=== PATIENT | female | born 1945 | race Caucasian/White ===

== ENCOUNTER 2018-04-05 14:24 | Inpatient (IN) | END 2018-04-14 18:00 | DRG 872 ==

== ENCOUNTER 2018-04-14 18:36 | Inpatient (IN) | END 2018-04-29 13:00 | disposition home health service (06) | DRG 92 ==

== ENCOUNTER 2018-10-20 15:24 | Inpatient (IN) | END 2018-10-28 10:40 | DRG 57 ==

== ENCOUNTER 2018-11-05 15:33 | Inpatient (IN) | payer MEDICARE, OTHER ==
[~2018-11-05] VITALS: Ht 167.6 cm; Wt 79.5 kg
[~2018-11-05 15:33] MED LIST: FELO10TA PO; LETR2.5T PO; LEVO75TA65 PO; LORA1TAB PO; METO-407 PO
[2018-11-05] MEDS ORDERED: CEFTRIAXONE 1 GM/50 ML (PMX) 50 ML IVPB STA (16:20)
[2018-11-05] MEDS ORDERED: SODIUM CHLORIDE 0.9% 1L BAG IV* STA (16:20)
[2018-11-05] MEDS ORDERED: NOVO3I SC (16:52)
[2018-11-05] MEDS ORDERED: ACET325T33 PO (16:53)
[2018-11-05] MEDS ORDERED: ASPI-817 PO (16:54)
[2018-11-05] MEDS ORDERED: AMLO-147 PO (16:54)
[2018-11-05] MEDS ORDERED: ATOR40TA68 PO (16:55)
[2018-11-05] MEDS ORDERED: BENZ2TAB7 PO (16:55)
[2018-11-05] MEDS ORDERED: CYAN100080 PO (16:56)
[2018-11-05] MEDS ORDERED: DOCU-144 PO (16:56)
[2018-11-05] MEDS ORDERED: ENOX40DI14 SC (16:57)
[2018-11-05] MEDS ORDERED: GLUC1VIA6 IJ (16:59)
[2018-11-05] MEDS ORDERED: INSU100I27 SQ (17:00)
[2018-11-05] MEDS ORDERED: LEVO75TA5 PO (17:00)
[2018-11-05] MEDS ORDERED: SENN-120 PO (17:01)
[2018-11-05] MEDS ORDERED: LORA1TAB PO (17:01)
[2018-11-05] MEDS ORDERED: VENL75TA2 PO (17:02)
[2018-11-05] MEDS ORDERED: MAGN400O19 PO (17:02)
--- NOTE | 2018-11-05 18:21 | ERD ---
ER Documentation Chief Complaint Chief Complaint PT FROM [place] WITH C/O VAG BLEEDING X1 DAY, ELEVATED WBC HPI History is unobtainable from patient secondary to her previous CVA. This is a 73-year-old female with previous CVA, history of breast cancer with mastectomy, history of non-Hodgkin's lymphoma hypertension, hemiplegia, and venkata-paresis who presents to the emergency room today for evaluation of vaginal bleeding. I am unable to obtain further history from this patient given her clinical condition. ROS All systems reviewed and are negative except as per history of present illness. Medications Home Meds Reported Medications Magnesium Hydroxide* (Milk Of Magnesia*) 400 Mg/5 Ml Oral.susp, 30 ML PO DAILY, ML 11/05/18 Venlafaxine Hcl* (Effexor XR*) 75 Mg Tab.er.24, 75 MG PO BID, TAB.SA 11/05/18 Sennosides* (Senna Lax*) 8.6 Mg Tablet, 1 TAB PO QHS, TAB 11/05/18 Lorazepam* (Lorazepam*) 1 Mg Tablet, 1 MG PO Q8 PRN for ANXIETY, #60 TAB 11/05/18 Levothyroxine Sodium* (Levothyroxine Sodium*) 75 Mcg Tablet, 75 MCG PO BEFORE BREAKFAST, #30 TAB 11/05/18 Insulin Detemir (Levemir Flextouch) 100 Unit/1 Ml Insuln.pen, 10 UNIT SQ QAM, EA 11/05/18 Glucagon HCl (Glucagon HCl) 1 Mg Vial, 1 MG IJ NEEDED PRN for FOR FSBS<60, VIAL 11/05/18 Enoxaparin Sodium* (Lovenox*) 40 Mg/0.4 Ml Syringe, 40 MG SC DAILY, SYR 11/05/18 Docusate Sodium* (Colace*) 100 Mg Capsule, 100 MG PO BID, #60 CAP 11/05/18 Cyanocobalamin* (Vitamin B-12*) 1,000 Mcg Tablet.sa, 1000 MCG PO DAILY, TAB 11/05/18 Benztropine Mesylate* (Benztropine Mesylate*) 2 Mg Tablet, 2 MG PO BID, TAB 11/05/18 Atorvastatin* (Atorvastatin*) 40 Mg Tablet, 40 MG PO QHS, #30 TAB 11/05/18 Aspirin* (Aspirin* EC) 81 Mg Tablet.dr, 81 MG PO DAILY, TAB 11/05/18 Amlodipine Besylate* (Amlodipine Besylate*) 10 Mg Tablet, 10 MG PO DAILY, #30 TAB HOLD IF SBP<110 11/05/18 Acetaminophen* (Tylenol*) 325 Mg Tablet, 650 MG PO Q4H PRN for PAIN 1-04/02, TAB 11/05/18 Insulin Aspart* (Novolog Insulin Pen*) 100 Unit/Ml Soln, 0 SC .SLIDING SCALE AC, EA IF FE08-610=3 UNIT, 150-200=2 UNITS,201-250=4 UNITS,251-300=6 UNITS,301-350=8 UNITS,351-400=10 UNITS>400=12 UNITS 11/05/18 Discontinued Reported Medications Metoprolol Tartrate* (Lopressor*) 100 Mg Tablet, 100 MG PO BID, #60 TAB 04/05/18 Lorazepam* (Lorazepam*) 1 Mg Tablet, 1 MG PO TID PRN for ANXIETY, #30 TAB 04/05/18 Levothyroxine Sodium* (Levoxyl*) 75 Mcg Tablet, 75 MCG PO BEFORE BREAKFAST, #30 TAB 04/05/18 Letrozole* (Letrozole*) 2.5 Mg Tablet, 2.5 MG PO DAILY, TAB 04/05/18 Felodipine* (Felodipine*) 10 Mg Tab.sr.24h, 10 MG PO DAILY, TAB.SA 04/05/18 Allergies Allergies: Coded Allergies: Penicillins (Verified Allergy, Unknown, 04/05/18) Sulfa (Sulfonamide Antibiotics) (Verified Allergy, Unknown, 04/05/18) codeine (Verified Allergy, Unknown, 04/05/18) hydromorphone (Verified Allergy, Unknown, 04/05/18) PMhx/Soc History of Surgery: Yes (BILATERAL MASTECTOMY, SPLENECTOMY ) Anesthesia Reaction: No Hx Neurological Disorder: Yes (CVA) Hx Respiratory Disorders: No Hx Cardiac Disorders: Yes (HTN) Hx Psychiatric Problems: No Hx Miscellaneous Medical Probl: Yes (DM II, HYPOTHYROID. NON HODGKINS LYMPHOMA) Smoking Status: Unknown if ever smoked Physical Exam Vitals Vital Signs Date Temp Pulse Resp B/P (MAP) Pulse Ox O2 O2 Flow FiO2 Time Delivery Rate 11/05/18 99.0 89 12 94 Room Air 17:27 11/05/18 84 18 150/79 97 Room Air 17:26 (102) 11/05/18 98.0 91 18 199/91 96 15:45 (127) Physical Exam INITIAL VITAL SIGNS: Reviewed by me GENERAL: The patient is a frail-appearing elderly female mild distress HEENT: Dry mucous membranes, pupils equal, round, and reactive to light. EOMI. There is no scleral icterus. NECK: C-spine is soft and supple, there is no meningismus. There is no cervical lymphadenopathy. LUNGS: Mastectomy noted from clear to auscultation bilaterally. There are no rales, wheezes or rhonchi. HEART: Regular rate and rhythm, no murmurs, clicks, rubs or gallops. ABDOMEN: Distended bladder ,soft, non-tender, non-distended. There are bowel sounds in all four quadrants. No rebound or guarding. EXTREMITIES: There is no peripheral cyanosis or edema. No focal swelling or erythema. : No bleeding from the vaginal introitus, small amount of blood noted at the urethra NEUROLOGICAL: Hemiplegia and hemiparesis SKIN: There is no apparent rash or petechiae. HEME/LYMPHATIC: There is no evidence of excessive bruising or lymphedema. PSYCHIATRIC: The patient does not appear anxious or depressed. Result Diagram: 11/05/18 1639 11/05/18 1639 Results 24 hrs Laboratory Tests Test 11/05/18 16:39 11/05/18 16:48 White Blood Count 30.2 10^3/ul Red Blood Count 4.64 10^6/ul Hemoglobin 13.4 g/dl Hematocrit 41.4 % Mean Corpuscular Volume 89.2 fl Mean Corpuscular Hemoglobin 28.9 pg Mean Corpuscular Hemoglobin Concent 32.4 g/dl Red Cell Distribution Width 15.3 % Platelet Count 471 10^3/UL Mean Platelet Volume 11.5 fl Immature Granulocytes % 0.900 % Neutrophils % % Segmented Neutrophils % (Manual) 91 % Band Neutrophils % (Manual) 1 % Lymphocytes % % Lymphocytes % (Manual) 1 % Monocytes % % Monocytes % (Manual) 7 % Eosinophils % % Basophils % % Nucleated Red Blood Cells % 0.0 /100WBC Immature Granulocytes # 0.280 10^3/ul Neutrophils # 10^3/ul Neutrophils # (Manual) 27.6 10^3/ul Band Neutrophils # 0.3 10^3/ul Lymphocytes (Manual) 0.3 10^3/ul Lymphocytes # 10^3/ul Monocytes # 10^3/ul Monocytes # (Manual) 2.1 10^3/ul Eosinophils # 10^3/ul Basophils # 10^3/ul Nucleated Red Blood Cells # 10^3/ul Platelet Estimate INCREASED Sodium Level 146 mmol/L Potassium Level 4.3 mmol/L Chloride Level 109 mmol/L Carbon Dioxide Level 25 mmol/L Anion Gap 12 Blood Urea Nitrogen 43 mg/dl Creatinine 1.27 mg/dl Est Glomerular Filtrat Rate mL/min mL/min Glucose Level 179 mg/dl Calcium Level 10.4 mg/dl Troponin I < 0.012 ng/ml POC Venous Lactate 1.7 mmol/L Current Medications Medications Dose Sig/Rajiv Start Time Status Last (Trade) Ordered Route PRN Stop Time Admin Dose Reason Admin Sodium 2,390 ml BOLUS OVER 2 11/05/18 DC Chloride HOURS STAT 16:20 (NS) IV* 11/05/18 16:21 Ceftriaxone 50 ml @ ONCE STAT 11/05/18 DC Sodium 100 mls/hr IVPB 16:20 11/05/18 16:49 Sodium 1,000 ml @ Q1H STAT 11/05/18 Chloride 1,000 mls/hr IV 18:30 11/05/18 19:29 Procedures/MDM Chest X-ray 1V Interpreted by me: Soft Tissue: No acute a bnormalities Bones: No acute abnormalities Mediastinum/Cardiac Silhouette/Lungs: [No acute abnormalities] EKG: Rate/Rhythm: [Normal Sinus Rhythm] QRS, ST, T-waves: [No changes consistent w/ acute ischemia] Impression: [No evidence of ischemia or arrhythmia] Endovaginal ultrasound: They are bladder does not appear to have been filled for the examination. The submitted transabdominal images do not show the uterus, adnexa, or urinary bladder. No obvious free fluid. Endovaginal images also do not show the uterus or ovaries. This 73-year-old female presents to the emergency room for evaluation of vaginal bleeding. This patient had no bleeding at the vaginal introitus however she did have a suprapubic distention and I did note some blood at the urethral meatus. The patient did have a Morales catheter placed and did have gross hematuria. The Morales catheter was removed and the three-way Morales catheter was placed for irrigation. The patient's lab work does demonstrate a leukocytosis of 30,000. She was started on Rocephin and was given IV fluids in the emergency room. The patient is currently undergoing bladder irrigation and will need to be admitted for continued antibiotics and possible urology consult. I have contacted this patient's primary care physician Dr. Emmanuel and I have reviewed the case with him. He accepts the patient at this time. The patient likely has a leukocytosis secondary to urine infection at this time and [facility] as she is hemodynamically stable and does have a mean arterial pressure greater than 65 with no need for vasopressors at this time. Critical Care: Time: 47 minutes Treatments/Evaluations: Close monitoring and treatment of unstable vital signs, cardiorespiratory, and neurologic status, while maintaining tight balance of fluid, respiratory, and cardiac interventions. Departure Diagnosis: Primary Impression: Sepsis Additional Impressions: Hematuria Cystitis Dehydration Hypertension History of non-Hodgkin's lymphoma H/O splenectomy Condition: JCARLOS Magana DO Nov 05, 2018 18:21
[2018-11-05] MEDS ORDERED: SOD CHLORIDE 0.9% 1,000 ML IV STA ×2 (18:30→21:18)
[2018-11-05] MEDS ORDERED: SOD CHLORIDE 0.9% 1,000 ML IV SCH (18:40)
[2018-11-05] MEDS ORDERED: ACETAMINOPHEN 325 MG TAB PO PRN (19:00)
[2018-11-05] MEDS ORDERED: ONDANSETRON 4 MG INJ IV PRN (19:00)
[2018-11-05] MEDS ORDERED: VANCOMYCIN 1.25 GM in SOD CHLORIDE 0.9% 250 ML IVPB ONE (19:00)
--- NOTE | 2018-11-05 21:30 | NUR ---
Admission notes: Patient admitted from E.R originally coming from residential ([facility]), chief complaint high white count and hematuria. Patient is alert and oriented x2 (name, age), but at times confused. Unable to get medical history from patient. Patient on lazcano catheter with blood drain, emptied 350cc of bloody urine that came from E.R. Noticed that there is no drainage from the lazcano catheter. Called Dr. Emmanuel and got admission orders and also informed Dr. Emmanuel regarding blood drainage from lazcano cath that came from E.R and also informed him about no drainage from lazcano cath as of now. Dr. Emmanuel ordered continuos bladder NS irrigation. Will continue to monitor patient.
[2018-11-05] MEDS: SOD CHLORIDE 0.45% 1,000 ML IV SCH (23:00)
[2018-11-05] MEDS ORDERED: MAGNESIUM HYDROXIDE 30ML CUP PO PRN (23:00)
--- NOTE | 2018-11-05 23:27 | NUR ---
Informed Dr. Emmanuel regarding lactic acid of 2.2. NNO at this time. Will continue to monitor patient.
[2018-11-05 23:48] VITALS: BP 132/63; PULSE 85; RESP 20
[2018-11-06 00:26] VITALS: Ht 167.6 cm; Wt 79.5 kg
[2018-11-06 02:21] VITALS: BP 149/75; PULSE 86; RESP 20
--- NOTE | 2018-11-06 05:58 | NUR ---
EOSS: Patient remains stable. No s/s of SOB noted. Patient still with continous bladder irrigation draining dark red output. Small clots still present from the lazcano catheter. Bed in low postion and locked. Siderails x2 up. Will continue to monitor patient.
[2018-11-06] MEDS: LEVOTHYROXINE 75 MCG TAB PO SCH (06:10)
[2018-11-06 07:48] VITALS: BP 199/101; PULSE 125; RESP 38
[2018-11-06] MEDS: LORAZEPAM 1 MG TAB PO PRN ×2 (07:48→17:26)
[2018-11-06] MEDS: INSULIN ASPART [NOVOLOG] 3 ML PEN SC SCH ×4 (08:00→20:41)
[2018-11-06] MEDS: VENLAFAXINE (XR) 75 MG CAP PO SCH ×2 (08:19→21:03)
[2018-11-06] MEDS: BENZTROPINE 1 MG TAB PO SCH ×2 (08:19→21:03)
[2018-11-06] MEDS: AMLODIPINE 10 MG TAB PO SCH (08:20)
[2018-11-06] MEDS: DOCUSATE SODIUM 100 MG CAP PO SCH ×2 (08:20→20:36)
[2018-11-06] MEDS: INSULIN DETEMIR [LEVEMIR] (100 UNITS/ML) SYG SC SCH (08:21)
[2018-11-06 09:24] VITALS: BP 154/77; PULSE 112
--- NOTE | 2018-11-06 09:24 | NUR ---
am meds and prn for SBP given, doctor notified Addendum: 11/06/18 at 0925 by TATIANA AMADOR RN Amended: Links added.
--- NOTE | 2018-11-06 12:15 | NUR ---
POSITIVE BLOOD CULTURE INFORMED BY LAB, LEFT A MESSAGE WITH THE ANSWERING SERVICE FOR PRIMARY MD
[2018-11-06] MEDS: SOD CHLORIDE 0.45% 1,000 ML IV SCH (12:41)
[2018-11-06 13:38] VITALS: BP 149/71; PULSE 87
[2018-11-06] MEDS ORDERED: VANCOMYCIN IV PER PHARMACY XX SCH (14:00)
--- NOTE | 2018-11-06 14:47 | NUR ---
SS NOTE: ETOH SW REFERRED TO PT REGARDING PROVISION OF ALCOHOL REHAB RESOURCES. SW MET WITH PT AT BEDSIDE, PT IS 55 YR OLD FEMALE ADMITTED FOR ETHANOL WITHDRAWAL. PT APPEARED TO BE A&OX3 AND COPING WITH SOME DIFFICULTY. PT LIVES AT HOME WITH HER DANIEL ([phone]). PT DECLINED TO CONTINUE/PARTICIPATE IN ASSESSMENT DUE TO NOT FEELING WELL AND REQUESTED THAT THIS LEGAL BILLING COORDINATOR LEAVE RESOURCES TO BE PROVIDED. PT HAD BEEN ASSESSED FOR ETOH BY SERGIO YIN ON 10/27/18 (PLEASE REFER TO NOTE) DURING PT'S PREVIOUS ADMISSION FOR ETOH W/DRAWL. SW PROVIDED PT WITH ALCOHOL REHAB/RECOVERY RESOURCES. SW PROVIDED MASSOTHERAPIST CONTACT INFO FOR ANY ADDITIONAL RESOURCES THAT MAY BE NEEDED. SW REMAINS AVAILABLE FOR F/U NEEDED.
--- NOTE | 2018-11-06 16:34 | NUR ---
Vancomycin per Rx 73 year old female 5' 6" 79.55 kg Allergies: Penicillins, sulfa, codeine, dilaudid CC: Gram positive cocci blood culture Other antibiotics: Rocephin WBC 27.9 BUN/Scr 31/0.98 Received Vancomycin 1.25 grams IVPB x1 in ER on 11/05 at 21:20 A/P: Start Vancomycin 1.5 grams IVPB q24h. Pharmacy to follow.
--- NOTE | 2018-11-06 16:51 | HP ---
DATE OF ADMISSION: 11/05/2018 HISTORY OF PRESENT ILLNESS: The patient is a 73-year-old lady status post recent CVA, presenting wit h severe hematuria from the convalescent home and was evaluated in the Emergency Room and was admitte d. The patient is presently lethargic and unable to provide any cogent history at this time. She wa s last hospitalized about 3 weeks ago with right aguirre radiata infarct, severe left-sided weakness, did well with rehabilitation and was transferred to the convalescent home. REVIEW OF SYSTEMS: HEAD: History of stroke, as above. EYES: No blurry vision or glaucoma. The patient wears glasses. ENT: No sinusitis, tonsillitis or hoarseness. CHEST: No bronchitis, hay fever, or asthma. The patient does not smoke. CARDIOVASCULAR: No PND, orthopnea, palpitations. GASTROINTESTINAL: No constipation, diarrhea, change in bowel habits. GENITOURINARY: Dysuria as above. PAST SURGICAL HISTORY: Includes bilateral mastectomy for breast CA, a prior history of Hodgkin disea se, status post splenectomy. Also has had right shoulder surgery and bilateral knee surgeries. PAST MEDICAL HISTORY: Also significant for history of diabetes mellitus type 2, hypertension, hyperl ipidemia, hypothyroidism and history of gastroesophageal reflux disease. ALLERGIES: 1. PENICILLIN. 2. SULFA. 3. DILAUDID. HABITS: Does not smoke or drink. SOCIAL HISTORY: The patient is , has no children. FAMILY HISTORY: Father at age 89 of lung cancer. Mother at age 89 of stroke. The patient lives with her sister. PHYSICAL EXAMINATION: GENERAL: The patient is average-built female who is lethargic. VITAL SIGNS: Temperature 98.0, blood pressure 149/71, O2 saturation 97% on 2 liters nasal cannula. Moderate pallor without cyanosis. Tongue is coated, dry. NECK: Supple. No thyromegaly, bruits or lymphadenopathy. NEUROLOGIC: LUNGS: Clinically clear. HEART: S1, S2 with no definite gallops. ABDOMEN: Soft, obese, nontender. Morales catheter draining bloody urine. EXTREMITIES: No edema. LABORATORY DATA: WBC count 30.2 with hematocrit 41.4. Sodium 148, potassium 3.9, BUN 31, creatinine 0.98. Lactic acid 2.2. Urine shows trace leukocyte esterase. PT/INR 1.05, PTT 27.6. MEDICATIONS: 1. Enoxaparin 40 mg subcu daily. 2. Amlodipine 10 mg daily. 3. Atorvastatin 40 mg daily. 4. Aspirin 81 mg daily. 5. Ditropan 2.2 b.i.d. 6. Lorazepam 1 mg q.8h. p.r.n. 7. Venlafaxine 75 mg p.o. b.i.d. 8. Levothyroxine 75 mcg every day. 9. Levimir insulin 10 units subcu q.a.m. IMPRESSION: 1. Severe hematuria, likely has urinary tract infection. 2. Diabetes mellitus type 2. 3. Status post recent aguirre radiata infarct on the right with left-sided weakness. 4. Hypothyroidism. 5. Breast CA with status post bilateral mastectomy. 6. History of non-Hodgkin lymphoma. 7. History of splenectomy. 8. Hypertension. PLAN: Will hold anticoagulants. Closely monitor for further bleeding. Bladder irrigation. Empiric antibiotic therapy and GI consultation, Dr. Shepard and follow recommendations. Dictated By: SANJUANITA FARRELL MD SR/NTS Conf#: [id number] DID#: [id number] CC: SANJUANITA FARRELL MD;*EndCC*
[2018-11-06] MEDS ORDERED: GLUCOSE GEL 15 GRAM TUBE PO PRN ×2 (17:00)
[2018-11-06] MEDS ORDERED: DEXTROSE 50% 50 ML SYRINGE IV PRN ×2 (17:00)
[2018-11-06] MEDS ORDERED: GLUCAGON 1 MG INJ IM PRN (17:00)
[2018-11-06] MEDS ORDERED: GLUCOSE GEL 15 GRAM TUBE BUCCAL PRN (17:00)
[2018-11-06 17:19] VITALS: BP 173/77; PULSE 97; RESP 20
[2018-11-06] MEDS: CEFTRIAXONE 1 GM/50 ML (PMX) 50 ML IVPB SCH (17:26)
[2018-11-06] MEDS ORDERED: VANCOMYCIN 1.5 GM in SOD CHLORIDE 0.9% 250 ML IVPB SCH (18:00)
--- NOTE | 2018-11-06 18:51 | NUR ---
aox2, on continuous bladder irrigation, low airloss mattress, positive blood cultures, vanco initiated, cleaned before the end of this shift, refused meals
[2018-11-06 19:23] VITALS: BP 152/63; PULSE 92; RESP 16
--- NOTE | 2018-11-06 20:09 | CONS ---
Date/Time of Note Date/Time of Note DATE: 11/06/18 TIME: 19:45 Assessment/Plan Assessment/Plan Chief Complaint/Hosp Course 73-year-old lady status post recent cerebrovascular accident presented with severe hematuria from the convalescent home. She was evaluated in the Emergency Room and admitted for further care. She was last hospitalized about 3 weeks ago with right aguirre radiata infarct, severe left-sided weakness, did well with rehabilitation and was transferred to the convalescent home. The patient is bedridden and states that she is uncomfortable. On the exam the abdomen is very obese and she does have a Morales catheter that is draining well with the continuous bladder irrigation. Pelvic ultrasound was reported as: Nondiagnostic study. The uterus and ovaries were not able to be seen. If symptoms persist, MRI may be helpful. Her hematuria is most likely related to urinary tract infection. For now recommend to continue the IV antibiotic. Also continue the continuous bladder irrigation with normal saline. Consultation Date/Type/Reason Admit Date/Time Nov 05, 2018 at 18:41 Date of Consultation: Nov 06, 2018 Type of Consult Urology Reason for Consultation Gross hematuria Requesting Provider: SANJUANITA FARRELL MD Hx of Present Illness 73-year-old lady status post recent cerebrovascular accident presented with severe hematuria from the convalescent home. She was evaluated in the Emergency Room and admitted for further care. She was last hospitalized about 3 weeks ago with right aguirre radiata infarct, severe left-sided weakness, did well with rehabilitation and was transferred to the convalescent home. The patient is bedridden and states that she is uncomfortable. history of diabetes mellitus type 2, hypertension, hyperlipidemia, hypo thyroidism and history of gastroesophageal reflux disease. Constitutional: other (Weakness) Eyes: no complaints ENT: no complaints Respiratory: No shortness of breath Cardiovascular: no complaints; No chest pain Gastrointestinal: diarrhea Genitourinary: hematuria Musculoskeletal: no complaints Skin: rash (Of her buttocks area) Neurologic: focal-weakness (Left side upper and lower extremities from her recent stroke) Endocrine: no complaints Lymphatic: no complaints Psychological: no complaints Past Medical History Medical History: diabetes, GERD, high cholesterol, hypertension, hypothyroid Past Surgical History Past Surgical Hx: other (Bilateral knee surgery, bilateral mastectomies ,right shoulder surgery, inferior vena cava filter.) Social History Alcohol Use: none Smoking Status: Unknown if ever smoked Exam/Review of Systems Vital Signs Vitals Vital Signs Date Temp Pulse Resp B/P (MAP) Pulse Ox O2 O2 Flow FiO2 Time Delivery Rate 11/06/18 98.2 92 16 152/63 94 19:23 (92) 11/06/18 Nasal 2.0 17:19 Cannula Intake and Output 11/05/18 11/05/18 11/06/18 1515:00 23:00 07:00 IntakeIntake Total 50033 ml 700 ml OutputOutput Total 5900 ml BalanceBalance 86062 ml 700 ml Exam Constitutional: alert Psych: no complaints Head: normocephalic Eyes: nl conjunctiva ENMT: nl external ears & nose Neck: supple, non-tender Respiratory: normal air movement Cardiovascular: No jugular venous distention (JVD) Gastrointestinal: soft, other (Very obese) Genitourinary - Female: other (Pelvic exam showed no mass and no discharge and no vaginal bleeding. She has an indwelling Morales catheter that is draining clear urine); No CVA tenderness Musculoskeletal: other (Paralyzed left side. She cannot move her left upper and her left lower extremities.) Extremities: No calf tenderness Neurological: nl speech Medications Medications Current Medications Insulin Aspart (Novolog Insulin Pen) NOVOLOG *MILD* ALGORITHM WITH MEALS BEDTIME SC ; Start 11/06/18 at 08:00 Sodium Chloride 1,000 ml @ 75 mls/hr [id number] IV Last administered on 11/06/18at 12:41; Admin Dose 75 MLS/HR; Start 11/05/18 at 23:00 Ceftriaxone Sodium 50 ml @ 100 mls/hr Q24H IVPB Last administered on 11/06/18at 17:26; Admin Dose 100 MLS/HR; Start 11/06/18 at 18:00 Clonidine (Catapres) 0.1 mg Q4H PRN PO ELEVATED BLOOD PRESSURE Last administered on 11/06/18at 17:26; Admin Dose 0.1 MG; Start 11/05/18 at 23:00 Acetaminophen (Tylenol Tab) 650 mg Q4H PRN PO PAIN 1-5/10; Start 11/05/18 at 23:00 Amlodipine Besylate (Norvasc) 10 mg DAILY PO Last administered on 11/06/18at 08:20; Admin Dose 10 MG; Start 11/06/18 at 09:00 Atorvastatin Calcium (Lipitor) 40 mg QHS PO ; Start 11/06/18 at 21:00 Benztropine Mesylate (Cogentin) 2 mg BID PO Last administered on 11/06/18at 08:19; Admin Dose 2 MG; Start 11/06/18 at 09:00 Docusate Sodium (Colace) 100 mg BID PO Last administered on 11/06/18at 08:20; Admin Dose 100 MG; Start 11/06/18 at 09:00 Insulin Detemir (Levemir) 10 units QAM SC Last administered on 11/06/18at 08:21; Admin Dose 10 UNITS; Start 11/06/18 at 09:00 Levothyroxine Sodium (Synthroid) 75 mcg BEFORE BREAKFAST PO Last administered on 11/06/18at 06:10; Admin Dose 75 MCG; Start 11/06/18 at 07:00 Lorazepam (Ativan) 1 mg Q6 PRN PO ANXIETY Last administered on 11/06/18at 17:26; Admin Dose 1 MG; Start 11/05/18 at 23:00 Magnesium Hydroxide (Milk Of Mag) 30 ml DAILY PRN PO CONSTIPATION; Start 11/05/18 at 23:00 Senna (Senokot) 1 tab QHS PO ; Start 11/06/18 at 21:00 Venlafaxine HCl (Effexor Xr) 75 mg BID PO Last administered on 11/06/18at 08:19; Admin Dose 75 MG; Start 11/06/18 at 09:00 Vancomycin HCl (Vanco Iv Per Pharmacy) VANCOMYCIN PER PHARMACY PER PROTOCOL XX ; Start 11/06/18 at 14:00 Vancomycin HCl 1.5 gm/Sodium Chloride 250 ml @ 83.333 mls/ hr Q24H IVPB Last administered on 11/06/18at 17:51; Admin Dose 83.333 MLS/HR; Start 11/06/18 at 18:00 Miscellaneous Information 1 ea NOTE XX ; Start 11/06/18 at 17:00 Glucose (Glutose) 15 gm Q15M PRN PO DECREASED GLUCOSE; Start 11/06/18 at 17:00 Glucose (Glutose) 22.5 gm Q15M PRN PO DECREASED GLUCOSE; Start 11/06/18 at 17:00 Dextrose (D50w Syringe) 25 ml Q15M PRN IV DECREASED GLUCOSE; Start 11/06/18 at 17:00 Dextrose (D50w Syringe) 50 ml Q15M PRN IV DECREASED GLUCOSE; Start 11/06/18 at 17:00 Glucagon (Glucagen) 1 mg Q15M PRN IM DECREASED GLUCOSE; Start 11/06/18 at 17:00 Glucose (Glutose) 15 gm Q15M PRN BUCCAL DECREASED GLUCOSE; Start 11/06/18 at 1 7:00 Results Result Diagram: 11/06/18 0557 11/06/18 0557 Results 24 hrs Laboratory Tests Test 11/05/18 19:47 11/05/18 21:43 11/05/18 22:32 11/06/18 05:57 POC Venous 2.7 *H Lactate Bedside Glucose 141 Lactic Acid 2.2 *H Level White Blood 27.9 H Count Red Blood Count 3.70 #L Hemoglobin 10.8 L Hematocrit 33.8 L Mean Corpuscular 91.4 Volume Mean Corpuscular 29.2 Hemoglobin Mean Corpuscular 32.0 Hemoglobin Stephanie nt Red Cell 15.7 H Distribution Width Platelet Count 402 Mean Platelet 11.2 H Volume Immature 0.600 H Granulocytes % Neutrophils % 85.0 H Lymphocytes % 3.8 L Monocytes % 10.2 Eosinophils % 0.0 Basophils % 0.4 Nucleated Red 0.0 Blood Cells % Immature 0.180 H Granulocytes # Neutrophils # 23.7 H Lymphocytes # 1.1 Monocytes # 2.9 H Eosinophils # 0.0 Basophils # 0.1 Nucleated Red 0.0 Blood Cells # Prothrombin Time 14.6 Prothrombin Time 1.1 Ratio INR 1.12 International Normalized Ratio Activated 28.0 Partial Thrombop last Time Sodium Level 148 H Potassium Level 3.9 Chloride Level 116 H Carbon Dioxide 22 Level Anion Gap 10 Blood Urea 31 #H Nitrogen Creatinine 0.98 Est Glomerular Filtrat Rate mL/min Glucose Level 141 Calcium Level 9.3 Test 11/06/18 07:51 11/06/18 12:20 11/06/18 17:14 Bedside Glucose 153 162 118 Imaging Pelvic ultrasound:Nondiagnostic study. The uterus and ovaries were not able to be seen. If symptoms persist, MRI may be helpful. KATYA HANDLEY MD Nov 06, 2018 19:56
[2018-11-06] MEDS: SENNA TAB PO SCH (20:36)
[2018-11-06] MEDS: ATORVASTATIN 40 MG TAB PO SCH (21:04)
[2018-11-07] MEDS: SOD CHLORIDE 0.45% 1,000 ML IV SCH ×4 (01:40→20:50)
[2018-11-07 02:16] VITALS: BP 140/63; PULSE 87; RESP 12
--- NOTE | 2018-11-07 05:47 | NUR ---
END OF SHIFT NOTES Pt on continuous bladder irrigation. No SC needed. VSS. Due meds given.
[2018-11-07] MEDS: LEVOTHYROXINE 75 MCG TAB PO SCH (06:11)
[2018-11-07 07:28] VITALS: BP 157/68; PULSE 84; RESP 18
[2018-11-07] MEDS: INSULIN ASPART [NOVOLOG] 3 ML PEN SC SCH ×4 (08:00→20:44)
[2018-11-07] MEDS: INSULIN DETEMIR [LEVEMIR] (100 UNITS/ML) SYG SC SCH (08:10)
[2018-11-07] MEDS: DOCUSATE SODIUM 100 MG CAP PO SCH ×2 (08:10→20:37)
[2018-11-07] MEDS: BENZTROPINE 1 MG TAB PO SCH ×2 (08:11→20:37)
[2018-11-07] MEDS: AMLODIPINE 10 MG TAB PO SCH (08:12)
[2018-11-07] MEDS: VENLAFAXINE (XR) 75 MG CAP PO SCH ×2 (08:12→20:37)
--- NOTE | 2018-11-07 09:45 | NUR ---
VANCO PER RX: SCR 1.27 -> 0.98 -> 0.68. Comments/Plan: CHANGE VANCO TO 750 MG IVPB Q12H FOR NOW. TROUGH TOMORROW.
[2018-11-07] MEDS: VANCOMYCIN 750 MG in SOD CHLORIDE 0.9% 150 ML IVPB SCH ×2 (11:16→22:02)
--- NOTE | 2018-11-07 12:36 | CONS ---
Date/Time of Note Date/Time of Note DATE: 11/07/18 TIME: 12:34 Consult Date/Type/Reason Admit Date/Time Nov 05, 2018 at 18:41 Initial Consult Date 11/06/18 Type of Consultation: Urology Reason for Consultation Hematuria Requesting Provider: SANJUANITA FARRELL MD Subjective Patient states that she does not feel well but appears to be comfortable Objective Vital Signs Date Temp Pulse Resp B/P (MAP) Pulse Ox O2 O2 Flow FiO2 Time Delivery Rate 11/07/18 Nasal 2.0 08:19 Cannula 11/07/18 97.8 84 18 157/68 100 07:28 (97) Intake and Output 11/06/18 11/06/18 11/07/18 1414:59 22:59 06:59 IntakeIntake Total 5550 ml 6350 ml 950 ml OutputOutput Total 4900 ml 6000 ml 525 ml BalanceBalance 650 ml 350 ml 425 ml Exam Morales catheter is draining clear urine with the bladder irrigation. Urine culture showed no growth but blood cultures showed gram-positive cocci in clusters. Results/Medications Result Diagram: 11/07/18 0656 11/07/18 0656 Results 24 hrs Laboratory Tests Test 11/06/18 17:14 11/06/18 20:40 11/07/18 06:56 11/07/18 07:18 Bedside Glucose 118 97 80 White Blood 20.8 #H Count Red Blood Count 3.12 L Hemoglobin 9.0 L Hematocrit 28.5 L Mean Corpuscular 91.3 Volume Mean Corpuscular 28.8 L Hemoglobin Mean Corpuscular 31.6 L Hemoglobin Stephanie nt Red Cell 15.9 H Distribution Width Platelet Count 354 Mean Platelet 11.2 H Volume Immature 0.800 H Granulocytes % Neutrophils % 81.3 H Lymphocytes % 5.5 L Monocytes % 9.2 Eosinophils % 2.8 Basophils % 0.4 Nucleated Red 0.0 Blood Cells % Immature 0.160 H Granulocytes # Neutrophils # 16.9 H Lymphocytes # 1.2 Monocytes # 1.9 H Eosinophils # 0.6 H Basophils # 0.1 Nucleated Red 0.0 Blood Cells # Sodium Level 140 Potassium Level 3.0 L Chloride Level 109 Carbon Dioxide 22 Level Anion Gap 9 Blood Urea 18 # Nitrogen Creatinine 0.68 Est Glomerular Filtrat Rate mL/min Glucose Level 104 Calcium Level 8.1 L Magnesium Level 1.9 Thyroid 2.960 Stimulating Hormone (TSH) Thyroxine (T4) 6.8 Test 11/07/18 11:42 Bedside Glucose 84 Medications Current Medications Insulin Aspart (Novolog Insulin Pen) NOVOLOG *MILD* ALGORITHM WITH MEALS BEDTIME SC ; Start 11/06/18 at 08:00 Sodium Chloride 1,000 ml @ 75 mls/hr [id number] IV Last administered on 11/07/18at 05:37; Admin Dose 75 MLS/HR; Start 11/05/18 at 23:00 Ceftriaxone Sodium 50 ml @ 100 mls/hr Q24H IVPB Last administered on 17:26; Admin Dose 100 MLS/HR; Start 11/06/18 at 18:00 Clonidine (Catapres) 0.1 mg Q4H PRN PO ELEVATED BLOOD PRESSURE Last administered on 11/06/18at 17:26; Admin Dose 0.1 MG; Start 11/05/18 at 23:00 Acetaminophen (Tylenol Tab) 650 mg Q4H PRN PO PAIN 1-5/10; Start 11/05/18 at 23:00 Amlodipine Besylate (Norvasc) 10 mg DAILY PO Last administered on 11/07/18at 08:12; Admin Dose 10 MG; Start 11/06/18 at 09:00 Atorvastatin Calcium (Lipitor) 40 mg QHS PO Last administered on 11/06/18at 21:04; Admin Dose 40 MG; Start 11/06/18 at 21:00 Benztropine Mesylate (Cogentin) 2 mg BID PO Last administered on 11/07/18at 08:11; Admin Dose 2 MG; Start 11/06/18 at 09:00 Docusate Sodium (Colace) 100 mg BID PO Last administered on 11/06/18 08:20; Admin Dose 100 MG; Start 11/06/18 at 09:00 Insulin Detemir (Levemir) 10 units QAM SC Last administered on 11/06/18at 08:21; Admin Dose 10 UNITS; Start 11/06/18 at 09:00 Levothyroxine Sodium (Synthroid) 75 mcg BEFORE BREAKFAST PO Last administered on 11/07/18at 06:11; Admin Dose 75 MCG; Start 11/06/18 at 07:00 Lorazepam (Ativan) 1 mg Q6 PRN PO ANXIETY Last administered on 11/06/18at 17:26; Admin Dose 1 MG; Start 11/05/18 at 23:00 Magnesium Hydroxide (Milk Of Mag) 30 ml DAILY PRN PO CONSTIPATION; Start 11/05/18 at 23:00 Senna (Senokot) 1 tab QHS PO ; Start 11/06/18 at 21:00 Venlafaxine HCl (Effexor Xr) 75 mg BID PO Last administered on 11/07/18at 08:12; Admin Dose 75 MG; Start 11/06/18 at 09:00 Vancomycin HCl (Vanco Iv Per Pharmacy) VANCOMYCIN PER PHARMACY PER PROTOCOL XX ; Start 11/06/18 at 14:00 Miscellaneous Information 1 ea NOTE XX ; Start 11/06/18 at 17:00 Glucose (Glutose) 15 gm Q15M PRN PO DECREASED GLUCOSE; Start 11/06/18 at 17:00 Glucose (Glutose) 22.5 gm Q15M PRN PO DECREASED GLUCOSE; Start 11/06/18 at 17:00 Dextrose (D50w Syringe) 25 ml Q15M PRN IV DECREASED GLUCOSE; Start 11/06/18 at 17:00 Dextrose (D50w Syringe) 50 ml Q15M PRN IV DECREASED GLUCOSE; Start 11/06/18 at 17:00 Glucagon (Glucagen) 1 mg Q15M PRN IM DECREASED GLUCOSE; Start 11/06/18 at 17:00 Glucose (Glutose) 15 gm Q15M PRN BUCCAL DECREASED GLUCOSE; Start 11/06/18 at 17:00 Vancomycin HCl 750 mg/Sodium Chloride 150 ml @ 75 mls/hr Q12H IVPB Last administered on 11/07/18at 11:16; Admin Dose 75 MLS/HR; Start 11/07/18 at 10:30 Miscellaneous Information (*Rx Drug Level Order Reminder*) 1 ONCE ONCE XX ; Start 11/08/18 at 09:30; Stop 11/08/18 at 09:31 Assessment/Plan Chief Complaint/Hosp Course 73-year-old lady status post recent cerebrovascular accident presented with severe hematuria from the convalescent home. She was evaluated in the Emergency Room and admitted for further care. She was last hospitalized about 3 weeks ago with right aguirre radiata infarct, severe left-sided weakness, did well with rehabilitation and was transferred to the convalescent home. The patient is b edridden and states that she is uncomfortable. The Morales catheter is draining clear urine with the bladder irrigation. There is no active bleeding at the present time. Her urine culture showed no growth so far. The blood culture is showing gram-positive cocci in clusters. For now we shall keep the continuous bladder irrigation and if the urine remains clear we will could stop the irrigation. KATYA HANDLEY MD Nov 07, 2018 12:36
[2018-11-07 15:22] VITALS: BP 135/63; PULSE 89
[2018-11-07] MEDS: ACETAMINOPHEN 325 MG TAB PO PRN ×2 (17:26→23:41)
[2018-11-07] MEDS: CEFTRIAXONE 1 GM/50 ML (PMX) 50 ML IVPB SCH (17:26)
--- NOTE | 2018-11-07 17:43 | NUR ---
aox2, on continuous bladder irrigation, low airloss mattress, positive blood cultures, vanco initiated, cleaned before the end of this shift, slight improvement on apatite
--- NOTE | 2018-11-07 19:15 | PN ---
DATE: 11/07/2018 SUBJECTIVE: The patient is more responsive today. Dr. Shepard's consultation and recommendation greatly appreciated. The patient is having poor p.o . intake. Denies any abdominal pain. PHYSICAL EXAMINATION: VITAL SIGNS: Temperature 97.8, blood pressure 157/68, O2 sats 100% on 2 liters nasal cannula. HEENT: Mild pallor with cyanosis. CHEST: Clinically clear. HEART: S1, S2 heard, no definite gallops. EXTREMITIES: No edema. LABORATORY DATA: Urine cultures so far no growth after 48 hours. Blood cultures gram-positive cocci in clusters. IMPRESSION: 1. Severe hematuria. So far, no evidence of UTI. Hematuria is clearing with bladder irrigation. 2. Diabetes mellitus type 2. 3. Status post recent cerebrovascular accident. 4. Hypothyroidism. 5. Breast CA status post bilateral vasectomy. 6. History of non-Hodgkin's lymphoma. 7. History of splenectomy. 8. Hypertension. PLAN: Continue IV antibiotics, namely vancomycin and ceftriaxone. Repeat labs in a.m[facility] . Dictated By: SANJUANITA FARRELL MD, SR/NTS Conf#: [id number] DID#: [id number]
[2018-11-07 19:32] VITALS: BP 157/56; PULSE 86; RESP 12
[2018-11-07] MEDS: ATORVASTATIN 40 MG TAB PO SCH (20:38)
[2018-11-07] MEDS: SENNA TAB PO SCH (20:38)
[2018-11-08 02:00] VITALS: BP 185/77; PULSE 84; RESP 12
[2018-11-08] MEDS: SOD CHLORIDE 0.45% 1,000 ML IV SCH ×2 (04:20→11:20)
--- NOTE | 2018-11-08 05:37 | NUR ---
END OF SHIFT NOTES Pt medicated for pain x1. Pt on continuous bladder irrigation. Pt a&o x3: person, place, time. No SC insulin needed. Pt ate pudding, juice, and a few bites of dinner. Due meds given. Pt BP was high, given clonidine x 1 prn. Pt had 1 BM and was cleaned.
[2018-11-08 06:30] VITALS: BP 144/66; PULSE 77
[2018-11-08] MEDS: LEVOTHYROXINE 75 MCG TAB PO SCH (06:32)
[2018-11-08 08:00] VITALS: BP 172/73; PULSE 75; RESP 14
[2018-11-08] MEDS: INSULIN ASPART [NOVOLOG] 3 ML PEN SC SCH ×4 (08:00→21:00)
[2018-11-08] MEDS: DOCUSATE SODIUM 100 MG CAP PO SCH ×2 (08:30→21:07)
[2018-11-08] MEDS: VENLAFAXINE (XR) 75 MG CAP PO SCH ×2 (08:30→21:07)
[2018-11-08] MEDS: BENZTROPINE 1 MG TAB PO SCH ×2 (08:30→21:06)
[2018-11-08] MEDS: AMLODIPINE 10 MG TAB PO SCH (08:31)
[2018-11-08] MEDS: INSULIN DETEMIR [LEVEMIR] (100 UNITS/ML) SYG SC SCH (08:33)
[2018-11-08 10:55] VITALS: BP 154/83
--- NOTE | 2018-11-08 11:15 | NUR ---
Vancomycin per Rx Vancomycin trough = 12.9 SCr 0.63 Continue Vancomycin 750 mg IV q12h
[2018-11-08] MEDS: ACETAMINOPHEN 325 MG TAB PO PRN ×2 (11:18→16:07)
[2018-11-08] MEDS: VANCOMYCIN 750 MG in SOD CHLORIDE 0.9% 150 ML IVPB SCH ×2 (11:20→23:12)
--- NOTE | 2018-11-08 11:51 | NUR ---
Nursing note: Pt. refusing breakfast after 4 offering at hour and 30 min intervals respectively since trays have come.
[2018-11-08 14:22] VITALS: BP_SYST 14; BP_SYST 143; BP_DIAS 61; PULSE 78; RESP 18
[2018-11-08] MEDS: CEFTRIAXONE 1 GM/50 ML (PMX) 50 ML IVPB SCH (18:01)
--- NOTE | 2018-11-08 18:37 | NUR ---
End of Shift Summary: Pt. A/Ox4, VSS, in no acute distress. Pt. c/o pain twice this shift, pain meds given prn with adequate relief. Accuchecks AC/HS. Pt. here for hematuria and sepsis. IV ABX given. IVF fluids running. Potassium low today; MD aware. Pt. still has CBI running; lazcano patent and draining; plan to possibly DC CBI- awaiting Dr. Shepard. Plan is to continue IV ABX and CBI. Labs ordered for tomorrow. Turned and repositioned q2h and as needed. Bed alarm on, call light within reach, bed in low and locked position, hourly rounding done. Will continue to monitor and endorse care to oncoming nurse.
[2018-11-08] MEDS: POTASSIUM CHLORIDE 40 MEQ in SOD CHLORIDE 0.45% 1,000 ML IV SCH (18:53)
[2018-11-08 20:48] VITALS: BP 125/73; PULSE 82; RESP 18
[2018-11-08] MEDS: ATORVASTATIN 40 MG TAB PO SCH (21:07)
[2018-11-08] MEDS: SENNA TAB PO SCH (21:07)
--- NOTE | 2018-11-08 21:47 | CONS ---
Date/Time of Note Date/Time of Note DATE: 11/08/18 TIME: 21:41 Consult Date/Type/Reason Admit Date/Time Nov 05, 2018 at 18:41 Initial Consult Date 11/06/18 Type of Consultation: Urology Reason for Consultation Hematuria Requesting Provider: SANJUANITA FARRELL MD Subjective The patient appears to be comfortable and does not have any complaints Objective Vital Signs Date Temp Pulse Resp B/P (MAP) Pulse Ox O2 O2 Flow FiO2 Time Delivery Rate 11/08/18 97.5 82 18 125/73 99 Nasal 2.0 20:48 (90) Cannula Intake and Output 11/07/18 11/07/18 11/08/18 1515:00 23:00 07:00 IntakeIntake Total 8500 ml 2150 ml 855 ml OutputOutput Total 9000 ml 1500 ml 1700 ml BalanceBalance -500 ml 650 ml -845 ml Exam Abdomen is soft and the Morales catheter is draining clear yellow urine with the bladder irrigation Results/Medications Result Diagram: 11/08/18 0610 11/08/18 0610 Results 24 hrs Laboratory Tests Test 11/08/18 06:10 11/08/18 08:29 11/08/18 09:40 11/08/18 12:49 White Blood 13.5 #H Count Red Blood Count 3.16 L Hemoglobin 9.2 L Hematocrit 28.9 L Mean Corpuscular 91.5 Volume Mean Corpuscular 29.1 Hemoglobin Mean Corpuscular 31.8 L Hemoglobin Stephanie nt Red Cell 15.4 H Distribution Width Platelet Count 360 Mean Platelet 11.2 H Volume Immature 0.400 Granulocytes % Neutrophils % 68.1 Lymphocytes % 12.9 L Monocytes % 10.1 Eosinophils % 8.3 H Basophils % 0.2 Nucleated Red 0.0 Blood Cells % Immature 0.060 H Granulocytes # Neutrophils # 9.2 H Lymphocytes # 1.8 Monocytes # 1.4 H Eosinophils # 1.1 H Basophils # 0.0 Nucleated Red 0.0 Blood Cells # Sodium Level 139 Potassium Level 3.2 L Chloride Level 105 Carbon Dioxide 26 Level Anion Gap 8 Blood Urea 13 Nitrogen Creatinine 0.63 Est Glomerular Filtrat Rate mL/min Glucose Level 102 Calcium Level 8.5 Magnesium Level 1.9 Bedside Glucose 102 115 Vancomycin Level 12.9 Trough Test 11/08/18 17:39 11/08/18 21:02 Bedside Glucose 80 89 Medications Current Medications Insulin Aspart (Novolog Insulin Pen) NOVOLOG *MILD* ALGORITHM WITH MEALS BEDTIME SC ; Start 11/06/18 at 08:00 Ceftriaxone Sodium 50 ml @ 100 mls/hr Q24H IVPB Last administered on 11/08/18at 18:01; Admin Dose 100 MLS/HR; Start 11/06/18 at 18:00 Clonidine (Catapres) 0.1 mg Q4H PRN PO ELEVATED BLOOD PRESSURE Last administered on 11/08/18 02:15; Admin Dose 0.1 MG; Start 11/05/18 at 23:00 Acetaminophen (Tylenol Tab) 650 mg Q4H PRN PO PAIN 1-04/02 Last administered on 11/08/18 16:07; Admin Dose 650 MG; Start 11/05/18 at 23:00 Amlodipine Besylate (Norvasc) 10 mg DAILY PO Last administered on 11/08/18 08:31; Admin Dose 10 MG; Start 11/06/18 at 09:00 Atorvastatin Calcium (Lipitor) 40 mg QHS PO Last administered on 11/08/18 21:07; Admin Dose 40 MG; Start 11/06/18 at 21:00 Benztropine Mesylate (Cogentin) 2 mg BID PO Last administered on 11/08/18 21:06; Admin Dose 2 MG; Start 11/06/18 at 09:00 Docusate Sodium (Colace) 100 mg BID PO Last administered on 11/08/18 21:07; Admin Dose 100 MG; Start 11/06/18 at 09:00 Insulin Detemir (Levemir) 10 units QAM SC Last administered on 11/08/18 08:33; Admin Dose 10 UNITS; Start 11/06/18 at 09:00 Levothyroxine Sodium (Synthroid) 75 mcg BEFORE BREAKFAST PO Last administered on 11/08/18 06:32; Admin Dose 75 MCG; Start 11/06/18 at 07:00 Lorazepam (Ativan) 1 mg Q6 PRN PO ANXIETY Last administered on 11/06/18 17:26; Admin Dose 1 MG; Start 11/05/18 at 23:00 Magnesium Hydroxide (Milk Of Mag) 30 ml DAILY PRN PO CONSTIPATION; Start 11/05/18 at 23:00 Senna (Senokot) 1 tab QHS PO Last administered on 11/08/18at 21:07; Admin Dose 1 TAB; Start 11/06/18 at 21:00 Venlafaxine HCl (Effexor Xr) 75 mg BID PO Last administered on 11/08/18at 21:07; Admin Dose 75 MG; Start 11/06/18 at 09:00 Vancomycin HCl (Vanco Iv Per Pharmacy) VANCOMYCIN PER PHARMACY PER PROTOCOL XX ; Start 11/06/18 at 14:00 Miscellaneous Information 1 ea NOTE XX ; Start 11/06/18 at 17:00 Glucose (Glutose) 15 gm Q15M PRN PO DECREASED GLUCOSE; Start 11/06/18 at 17:00 Glucose (Glutose) 22.5 gm Q15M PRN PO DECREASED GLUCOSE; Start 11/06/18 at 17:00 Dextrose (D50w Syringe) 25 ml Q15M PRN IV DECREASED GLUCOSE; Start 11/06/18 at 17:00 Dextrose (D50w Syringe) 50 ml Q15M PRN IV DECREASED GLUCOSE; Start 11/06/18 at 17:00 Glucagon (Glucagen) 1 mg Q15M PRN IM DECREASED GLUCOSE; Start 11/06/18 at 17:00 Glucose (Glutose) 15 gm Q15M PRN BUCCAL DECREASED GLUCOSE; Start 11/06/18 at 17:00 Vancomycin HCl 750 mg/Sodium Chloride 150 ml @ 75 mls/hr Q12H IVPB Last administered on 11/08/18at 11:20; Admin Dose 75 MLS/HR; Start 11/07/18 at 10:30 Potassium Chloride 40 meq/ Sodium Chloride 1,000 ml @ 75 mls/hr [id number] IV Last administered on 11/08/18at 18:53; Admin Dose 75 MLS/HR; Start 11/08/18 at 18:30 Assessment/Plan Chief Complaint/Hosp Course 73-year-old lady status post recent cerebrovascular accident presented with severe hematuria from the convalescent home. She was evaluated in the Emergency Room and admitted for further care. She was last hospitalized about 3 weeks ago with right aguirre radiata infarct, severe left-sided weakness, did well with rehabilitation and was transferred to the convalescent home. The patient is bedridden and states that she is uncomfortable. The Morales catheter is draining clear urine with the bladder irrigation. There is no active bleeding at the present time. Her urine culture showed no growth so far. The blood culture is showing gram-positive cocci in clusters: Organism 1 COAGULASE NEGATIVE STAPH CRITICAL TEST VALUE BTL 1 . PHONED TO & READ BACK BY FADUMO AMADOR,5E @9328 11/06/18 BY AT. CRITICAL TEST VALUE BTL 2 . PHONED TO & READ BACK BY Gisella KRAUSE AT 2727,11/06/18 [facility] COAG NEG M.I.C. RX --------- --- CEFAZOLIN R CIPROFLOXACIN >=8 R CLINDAMYCIN >=8 R DOXYCYCLINE S ERYTHROMYCIN >=8 R LEVOFLOXACIN >=8 R OXACILLIN >=4 R PENICILLIN-G >=0.5 R RIFAMPIN <=0.5 S VANCOMYCIN 2 S TRIMETHOPRIM/SULFAMETHOXAZOLE 80 R . For now we'll discontinue the bladder irrigation and continue the vancomycin. KATYA HANDLEY MD Nov 08, 2018 21:47
[2018-11-09 02:00] VITALS: BP 153/63; PULSE 79; RESP 18
[2018-11-09] MEDS: LEVOTHYROXINE 75 MCG TAB PO SCH (06:43)
--- NOTE | 2018-11-09 07:30 | NUR ---
END OF SHIFT SUMMARY Patient remains stable during shift. Vital signs WNL. Denies pain. Alert and oriented x3. Episodes of forgetfulness. Encouraged patient to snack during shift. No apparent acute distress noted during shift. lood sugar remains stable. Medications and IV antibiotics and fluids administered as ordered. Fall precautions initiated. Bed alarm on, bed is in lowest position, side rails up 2/4, call light is within reach. All needs attended. Endorsed to AM shift.
--- NOTE | 2018-11-09 07:40 | PN ---
DATE: 11/08/2018 SUBJECTIVE: The patient is comfortable, presently lethargic. PHYSICAL EXAMINATION: VITAL SIGNS: Temperature 98.1, blood pressure 154/83, O2 sats 100% on 2 liters nasal cannula. HEENT: Mild pallor without cyanosis. LUNGS: Clinically clear. HEART: S1, S2 with no definite gallops. EXTREMITIES: No edema. GENITOURINARY: Urine clearing well. LABORATORY DATA: Blood culture growing coag negative Staphylococcus. WBC count is coming down to 13 .5 from 13.2, hematocrit 28.9. Potassium 3.2. Magnesium 1.9. IMPRESSION: 1. Hematuria, resolving. 2. Gram-positive bacteremia. 3. Diabetes mellitus type 2. 4. Status post recent cerebrovascular accident. 5. Hypothyroidism. 6. Status post bilateral mastectomy for breast carcinoma. 7. History of non-Hodgkin's lymphoma. 8. Status post splenectomy. PLAN: The patient is hypokalemic. We will replace potassium. Continue IV antibiotics and observe. Dictated By: SANJUANITA FARRELL MD, SR/CHRISTIAN Conf#: [id number] DID#: [id number]
[2018-11-09 07:52] VITALS: BP 159/77; PULSE 89; RESP 18
[2018-11-09] MEDS: INSULIN ASPART [NOVOLOG] 3 ML PEN SC SCH ×4 (08:00→21:00)
[2018-11-09] MEDS: BENZTROPINE 1 MG TAB PO SCH ×2 (08:34→21:00)
[2018-11-09] MEDS: INSULIN DETEMIR [LEVEMIR] (100 UNITS/ML) SYG SC SCH (08:34)
[2018-11-09] MEDS: VENLAFAXINE (XR) 75 MG CAP PO SCH ×2 (08:34→21:52)
[2018-11-09] MEDS: DOCUSATE SODIUM 100 MG CAP PO SCH ×2 (08:34→20:59)
[2018-11-09] MEDS: AMLODIPINE 10 MG TAB PO SCH (08:36)
[2018-11-09] MEDS: POTASSIUM CHLORIDE 40 MEQ in SOD CHLORIDE 0.45% 1,000 ML IV SCH ×2 (09:29→21:10)
[2018-11-09] MEDS: ACETAMINOPHEN 325 MG TAB PO PRN ×2 (10:40→18:33)
[2018-11-09] MEDS: VANCOMYCIN 750 MG in SOD CHLORIDE 0.9% 150 ML IVPB SCH ×2 (10:41→22:02)
[2018-11-09 13:45] VITALS: BP 148/68; PULSE 90; RESP 18
[2018-11-09] MEDS ORDERED: POTASSIUM CHLORIDE (SR) 10 MEQ TAB PO ONE (15:30)
[2018-11-09] MEDS: CEFTRIAXONE 1 GM/50 ML (PMX) 50 ML IVPB SCH (17:21)
--- NOTE | 2018-11-09 18:44 | NUR ---
End of Shift Summary: Pt. A/Ox4, VSS, in no acute distress. Pt. c/o pain twice this shift, pain meds given prn with adequate relief. Accuchecks AC/HS; no coverage needed today. Pt. here for hematuria and sepsis. IV ABX given. IVF fluids running. Potassium low today; aware. CBI DC'd; lazcano patent and draining. Plan is to continue IV ABX and replace potassium. Labs ordered for tomorrow. Turned and repositioned q2h and as needed. Bed alarm on, call light within reach, bed in low and locked position, hourly rounding done. Will continue to monitor and endorse care to oncoming nurse.
--- NOTE | 2018-11-09 19:19 | CONS ---
Date/Time of Note Date/Time of Note DATE: 11/09/18 TIME: 19:16 Consult Date/Type/Reason Admit Date/Time Nov 05, 2018 at 18:41 Initial Consult Date 11/06/18 Type of Consultation: Urology Reason for Consultation Gross hematuria Requesting Provider: SANJUANITA FARRELL MD Subjective Patient is comfortable and denies any pain today Objective Vital Signs Date Temp Pulse Resp B/P (MAP) Pulse Ox O2 O2 Flow FiO2 Time Delivery Rate 11/09/18 98.7 90 18 148/68 94 Nasal 13:45 (94) Cannula 11/09/18 2.0 08:00 Intake and Output 11/08/18 11/08/18 11/09/18 1515:00 23:00 07:00 IntakeIntake Total 475 ml 950 ml 927 ml OutputOutput Total 725 ml 5500 ml 1000 ml BalanceBalance -250 ml -4550 ml -73 ml Exam Abdomen is soft and the Morales catheter is draining clear urine. Results/Medications Result Diagram: 11/09/18 0550 11/09/18 0550 Results 24 hrs Laboratory Tests Test 11/08/18 21:02 11/09/18 05:50 11/09/18 08:33 11/09/18 12:31 Bedside Glucose 89 72 127 White Blood 12.0 H Count Red Blood Count 3.73 L Hemoglobin 10.8 L Hematocrit 33.7 L Mean Corpuscular 90.3 Volume Mean Corpuscular 29.0 Hemoglobin Mean Corpuscular 32.0 Hemoglobin Stephanie nt Red Cell 15.4 H Distribution Width Platelet Count 386 Mean Platelet 11.1 H Volume Immature 0.600 H Granulocytes % Neutrophils % 68.6 Lymphocytes % 10.6 L Monocytes % 10.7 Eosinophils % 9.0 H Basophils % 0.5 Nucleated Red 0.0 Blood Cells % Immature 0.070 H Granulocytes # Neutrophils # 8.2 H Lymphocytes # 1.3 Monocytes # 1.3 H Eosinophils # 1.1 H Basophils # 0.1 Nucleated Red 0.0 Blood Cells # Sodium Level 141 Potassium Level 3.4 L Chloride Level 106 Carbon Dioxide 25 Level Anion Gap 10 Blood Urea 8 Nitrogen Creatinine 0.60 Est Glomerular Filtrat Rate mL/min Glucose Level 88 Calcium Level 8.9 Magnesium Level 1.9 Test 11/09/18 17:20 Bedside Glucose 110 Medications Current Medications Insulin Aspart (Novolog Insulin Pen) NOVOLOG *MILD* ALGORITHM WITH MEALS BEDTIME SC ; Start 11/06/18 at 08:00 Ceftriaxone Sodium 50 ml @ 100 mls/hr Q24H IVPB Last administered on 11/09/18 17:21; Admin Dose 100 MLS/HR; Start 11/06/18 at 18:00 Clonidine (Catapres) 0.1 mg Q4H PRN PO ELEVATED BLOOD PRESSURE Last administered on 11/08/18 02:15; Admin Dose 0.1 MG; Start 11/05/18 at 23:00 Acetaminophen (Tylenol Tab) 650 mg Q4H PRN PO PAIN 1-5 Last administered on 11/09/18 18:33; Admin Dose 650 MG; Start 11/05/18 at 23:00 Amlodipine Besylate (Norvasc) 10 mg DAILY PO Last administered on 11/09/18 08:36; Admin Dose 10 MG; Start 11/06/18 at 09:00 Atorvastatin Calcium (Lipitor) 40 mg QHS PO Last administered on 11/08/18 21:07; Admin Dose 40 MG; Start 11/06/18 at 21:00 Benztropine Mesylate (Cogentin) 2 mg BID PO Last administered on 11/09/18 08:34; Admin Dose 2 MG; Start 11/06/18 at 09:00 Docusate Sodium (Colace) 100 mg BID PO Last administered on 11/09/18 08:34; Admin Dose 100 MG; Start 11/06/18 at 09:00 Insulin Detemir (Levemir) 10 units QAM SC Last administered on 11/09/18 08:34; Admin Dose 10 UNITS; Start 11/06/18 at 09:00 Levothyroxine Sodium (Synthroid) 75 mcg BEFORE BREAKFAST PO Last administered on 11/09/18 06:43; Admin Dose 75 MCG; Start 11/06/18 at 07:00 Lorazepam (Ativan) 1 mg Q6 PRN PO ANXIETY Last administered on 11/06/18 17:26; Admin Dose 1 MG; Start 11/05/18 at 23:00 Magnesium Hydroxide (Milk Of Mag) 30 ml DAILY PRN PO CONSTIPATION; Start 11/05/18 at 23:00 Senna (Senokot) 1 tab QHS PO Last administered on 12/16/18at 21:07; Admin Dose 1 TAB; Start 11/06/18 at 21:00 Venlafaxine HCl (Effexor Xr) 75 mg BID PO Last administered on 11/09/18at 08:34; Admin Dose 75 MG; Start 11/06/18 at 09:00 Vancomycin HCl (Vanco Iv Per Pharmacy) VANCOMYCIN PER PHARMACY PER PROTOCOL XX ; Start 11/06/18 at 14:00 Miscellaneous Information 1 ea NOTE XX ; Start 11/06/18 at 17:00 Glucose (Glutose) 15 gm Q15M PRN PO DECREASED GLUCOSE; Start 11/06/18 at 17:00 Glucose (Glutose) 22.5 gm Q15M PRN PO DECREASED GLUCOSE; Start 11/06/18 at 17:00 Dextrose (D50w Syringe) 25 ml Q15M PRN IV DECREASED GLUCOSE; Start 11/06/18 at 17:00 Dextrose (D50w Syringe) 50 ml Q15M PRN IV DECREASED GLUCOSE; Start 11/06/18 at 17:00 Glucagon (Glucagen) 1 mg Q15M PRN IM DECREASED GLUCOSE; Start 11/06/18 at 17:00 Glucose (Glutose) 15 gm Q15M PRN BUCCAL DECREASED GLUCOSE; Start 11/06/18 at 17:00 Vancomycin HCl 750 mg/Sodium Chloride 150 ml @ 75 mls/hr Q12H IVPB Last administered on 11/09/18at 10:41; Admin Dose 75 MLS/HR; Start 11/07/18 at 10:30 Potassium Chloride 40 meq/ Sodium Chloride 1,000 ml @ 75 mls/hr [id number] IV Last administered on 11/09/18at 09:29; Admin Dose 75 MLS/HR; Start 11/08/18 at 18:30 Assessment/Plan Chief Complaint/Hosp Course 73-year-old lady status post recent cerebrovascular accident presented with severe hematuria from the convalescent home. She was evaluated in the Emergency Room and admitted for further care. She was last hospitalized about 3 weeks before with right aguirre radiata infarct, severe left-sided weakness. She did well with rehabilitation and was transferred to the convalescent home. The patient is bedridden and states that she is uncomfortable. The Morales catheter is draining clear urine. There is no active bleeding at the present time. The blood culture is showing gram-positive cocci in clusters: Organism 1 COAGULASE NEGATIVE STAPH CRITICAL TEST VALUE BTL 1 . PHONED TO & READ BACK BY FADUMOVALENCIA BRANDONALMA,5E @1211 11/06/18 BY AT. CRITICAL TEST VALUE BTL 2 . PHONED TO & READ BACK BY Gisella KRAUSE AT 1537,11/06/18 [facility] COAG NEG M.I.C. RX --------- --- CEFAZOLIN R CIPROFLOXACIN >=8 R CLINDAMYCIN >=8 R DOXYCYCLINE S ERYTHROMYCIN >=8 R LEVOFLOXACIN >=8 R OXACILLIN >=4 R PENICILLIN-G >=0.5 R RIFAMPIN <=0.5 S VANCOMYCIN 2 S TRIMETHOPRIM/SULFAMETHOXAZOLE 80 R . The bladder irrigation has been stopped and the urine remained clear. The patient is covered with ceftriaxone and vancomycin. Urologically there is no need at the present to do any intervention. KATYA HANDLEY MD Nov 09, 2018 19:19
[2018-11-09 20:09] VITALS: BP 140/61; PULSE 91; RESP 18
[2018-11-09] MEDS: ATORVASTATIN 40 MG TAB PO SCH (20:59)
[2018-11-09] MEDS: SENNA TAB PO SCH (21:52)
[2018-11-10 02:21] VITALS: BP 138/67; PULSE 93; RESP 18
[2018-11-10] MEDS: POTASSIUM CHLORIDE 40 MEQ in SOD CHLORIDE 0.45% 1,000 ML IV SCH ×3 (05:25→21:08)
[2018-11-10] MEDS: LEVOTHYROXINE 75 MCG TAB PO SCH (06:24)
--- NOTE | 2018-11-10 07:52 | NUR ---
END OF SHIFT SUMMARY Patient remains stable during shift. Vital signs WNL. Patient is alert and oriented x3. Denies pain or discomfort. Patient's blood glucose remains stable. Encouraged patient to snack. No apparent acute distress noted during shift. Medications and IV antibiotics and fluids administered as ordered. Fall precautions initiated. Bed alarm on, bed is in lowest position, side rails up 2/4, call light is within reach. All needs attended. Endorsed to AM shift.
--- NOTE | 2018-11-10 07:57 | PN ---
DATE: 11/09/2018 SUBJECTIVE: Patient is lethargic. VITAL SIGNS: Temperature 98.7, blood pressure 115/77, O2 sats 94% on 2 liters nasal cannula. CHEST: Clinically clear. HEART: S1, S2 with no gallops. EXTREMITIES: No edema. LABORATORY DATA: Sodium 141, potassium 2.4, magnesium 1.9. WBC count 12.0. Urine culture no growth . IMPRESSION: 1. Severe hematuria with anemia, resolving. 2. Gram-positive bacteremia. 3. Diabetes mellitus type 2. 4. Status post cerebrovascular accident. 5. Hypothyroidism. 6. Status post bilateral mastectomy for breast CA. 7. History of non-Hodgkin's lymphoma. 8. Status post splenectomy. 9. Hypokalemia. PLAN: Replace potassium. Continue IV antibiotics and fluids and observe. Dictated By: SANJUANITA FARRELL MD SR/NTS Conf#: [id number] DID#: [id number] CC: MARIUSZ XIE MD;*EndCC*
[2018-11-10 08:00] VITALS: BP 140/64; PULSE 87; RESP 18
[2018-11-10] MEDS: INSULIN ASPART [NOVOLOG] 3 ML PEN SC SCH ×4 (08:00→20:12)
[2018-11-10] MEDS: DOCUSATE SODIUM 100 MG CAP PO SCH ×2 (08:29→20:11)
[2018-11-10] MEDS: VENLAFAXINE (XR) 75 MG CAP PO SCH ×2 (08:29→20:11)
[2018-11-10] MEDS: BENZTROPINE 1 MG TAB PO SCH ×2 (08:29→20:11)
[2018-11-10] MEDS: AMLODIPINE 10 MG TAB PO SCH (08:30)
[2018-11-10] MEDS: INSULIN DETEMIR [LEVEMIR] (100 UNITS/ML) SYG SC SCH (08:36)
[2018-11-10] MEDS: VANCOMYCIN 750 MG in SOD CHLORIDE 0.9% 150 ML IVPB SCH ×2 (10:10→22:33)
[2018-11-10] MEDS: ACETAMINOPHEN 325 MG TAB PO PRN (10:15)
[2018-11-10 14:00] VITALS: BP 140/63; PULSE 83; RESP 18
--- NOTE | 2018-11-10 14:20 | NUR ---
Perianal excoriation ESTEPHANIA Pantoja notified me of patient's perianal excoriation with blood tinge noted. Notified charge nurse Antoinette and MD Dr. Emmanuel. Received no new orders. I also reveiwed the previous photographs of patient's sacrum and noted the difference between now and previous incontinent dermatitis. The redness from the dermatitis significantly improved although some excoriation remained. Pls see pix taken on the patient's chart.
--- NOTE | 2018-11-10 14:37 | NUR ---
SS NOTE: READMISSION SW REFERRED TO PT REGARDING READMISSION. PT IS 73 YR OLD FEMALE READMITTED TO [facility] AFTER 8 DAYS FROM [facility] FOR SEPSIS HEMATURIA. SW MET WITH PT AT BEDSIDE, PT APPEARED TO BE A&OX3 AND COPING APPROPRIATELY WITH ADMISSION. PT STATED THAT SHE LIVES AT HOME WITH HER SISTER JORADN ([phone]). PT STATED THAT SHE HAS STRONG SUPPORT SYSTEM FROM HER SISTER. PT STATED THAT HER SUSTER JORDAN IS HER PRIMARY SURROGATE DECISION MAKER. PT IS RETIRED AN RECEIVING SOCIAL [employer]URITY FIN[employer]CIAL BENEFIT. PT HAS CANE, SHOWER CHAIR AND [employer] DME IN THE HOUSEHOLD. PT STATED THAT SHE DRIVES HERSELF TO PCP APPOINTMENTS. PT'S REPORTED GOOD COMMUNICATION WITH THE MEDICAL TEAM REGARDING PLAN OF CARE. NO PCC NEEDED AT THIS TIME. SW DISCUSSED AHCD FORM, PT DECLINED. PT REQUESTED TO D/C BACK TO HOME WHEN MEDICALLY CLEARED. SW PROVIDED SENIOR INFRASTRUCTURE ARCHITECT CONTACT INFO FOR ANY NEEDED RESOURCES. SW REMAINS AVAILABLE FOR F/U NEEDED.
--- NOTE | 2018-11-10 15:29 | PN ---
DATE: 11/10/2018 SUBJECTIVE: The patient is more responsive today. OBJECTIVE: VITAL SIGNS: Temperature 98.3, blood pressure 140/64, O2 saturation 98% on 2 liters nasal cannula. LUNGS: Clinically clear. HEART: S1, S2 heard, no definite gallops. ABDOMEN: Soft, nontender, no hepatosplenomegaly. EXTREMITIES: No edema. LABORATORY DATA: WBC count 14.5, hematocrit 31.6, platelet count 404,000. Glucose levels in the nor mal range. BUN 8, creatinine 0.67. IMPRESSION: 1. Hematuria with anemia, resolving. 2. Gram-positive bacteremia, query contaminant. 3. Diabetes mellitus type 2. 4. Status post cerebrovascular accident. 5. Leukocytosis. 6. Status post bilateral mastectomy for breast carcinoma. 7. History of non-Hodgkin lymphoma. 8. Status post splenectomy. PLAN: We will discontinue Rocephin. Continue IV vancomycin. Repeat blood cultures and reevaluate. Dictated By: SANJUANITA FARRELL MD SR/CHRISTIAN Conf#: [id number] DID#: [id number]
--- NOTE | 2018-11-10 18:37 | NUR ---
END OF SHIFT NOTES: PT STABLE, ALERT & ORIENTED X3. NO DISTRESS NOTED. ACCUCHECKS DONE, BLOOD GLUCOSE WNL. NO INSULIN COVERAGE INDICATED. TURNED AND REPOSITIONED PT FREQUENTLY. INSTRUCTED PT TO CALL FOR ASSISTANCE. VS WNL.HOURLY ROUNDING. CALL LIGHT WITHIN REACH.ALL NEEDS MET. NO NEW COMPLAINTS.
[2018-11-10 20:00] VITALS: BP 143/69; PULSE 93; RESP 18
[2018-11-10] MEDS: SENNA TAB PO SCH (20:11)
[2018-11-10] MEDS: ATORVASTATIN 40 MG TAB PO SCH (20:11)
--- NOTE | 2018-11-10 23:03 | NUR ---
Patient is at risk for sepsis during sepsis screening due to WBC of 14.5 and heart rate of 93. Notified Dr. Emmanuel. No new order received.
[2018-11-11 02:00] VITALS: BP 148/72; PULSE 94; RESP 18
--- NOTE | 2018-11-11 05:50 | NUR ---
Received patient in bed from AM shift at 1905. Patient is resting comfortably in bed. Alert and oriented to place, person, situation. On 2 L O2 via nasal canula. Denies pain. Denies shortness of breath. Vital signs stable. IV fluids and IV antibiotics given as ordered. Medications given as ordered. No apparent acute distress noted. Morales cath care provided. Skin care provided. Fall precautions initiated: bed alarm on, bed in lowest position, call light within reach, side rails x2. Will endorse to oncoming shift.
[2018-11-11] MEDS: LEVOTHYROXINE 75 MCG TAB PO SCH (06:04)
[2018-11-11 07:16] VITALS: BP 160/93; PULSE 103; RESP 18
[2018-11-11] MEDS: INSULIN ASPART [NOVOLOG] 3 ML PEN SC SCH ×4 (08:00→21:00)
[2018-11-11] MEDS: AMLODIPINE 10 MG TAB PO SCH (08:27)
[2018-11-11] MEDS: BENZTROPINE 1 MG TAB PO SCH ×2 (08:27→20:55)
[2018-11-11] MEDS: DOCUSATE SODIUM 100 MG CAP PO SCH ×2 (08:28→20:55)
[2018-11-11] MEDS: VENLAFAXINE (XR) 75 MG CAP PO SCH ×2 (08:28→20:54)
[2018-11-11] MEDS: INSULIN DETEMIR [LEVEMIR] (100 UNITS/ML) SYG SC SCH (08:31)
[2018-11-11] MEDS: VANCOMYCIN 750 MG in SOD CHLORIDE 0.9% 150 ML IVPB SCH ×2 (10:51→22:42)
[2018-11-11] MEDS: ACETAMINOPHEN 325 MG TAB PO PRN ×3 (11:13→20:58)
[2018-11-11] MEDS: POTASSIUM CHLORIDE 40 MEQ in SOD CHLORIDE 0.45% 1,000 ML IV SCH ×2 (13:10→14:47)
[2018-11-11 14:33] VITALS: BP 155/70; PULSE 98; RESP 18
--- NOTE | 2018-11-11 18:00 | NUR ---
END OF SHIFT NOTES: PT STABLE, ALERT & ORIENTED X3. ACCUCHECKS DONE, BLOOD GLUCOSE WNL, NO INSULIN COVERAGE GIVEN THROUGH OUT THE SHFT. ADMINISTERED TYLENOL X2 FOR PAIN. PT VERBALIZED RELIEF. MAINTAINED ON O2 PRESCRIBED. EDWARDS PATENT AND DRAINING TO CLEAR YELLOW URINE. IV ABX GIVEN PT TOLERATED WELL. NO DISTRESS NOTED. INSTRUCTED PT TO CALL FOR ASSISTANCE. VS WNL.HOURLY ROUNDING. CALL LIGHT WITHIN REACH.ALL NEEDS MET. NO NEW COMPLAINTS.
--- NOTE | 2018-11-11 18:25 | PN ---
DATE: 11/11/2018 SUBJECTIVE: The patient is more responsive, alert, oriented x3. PHYSICAL EXAMINATION: VITAL SIGNS: Temperature 97.8, blood pressure 160/93, O2 sat is 97% on 2 liters nasal cannula. HEENT: Mild pallor without cyanosis. LUNGS: Clinically clear. HEART: S1, S2 with no definite gallops. EXTREMITIES: No edema. NEUROLOGIC: Left-sided weakness noted. LABORATORY DATA: WBC count yesterday was 14.5, hematocrit 31.6, platelet count 404,000. Glucose 116 , 130 and 109 today. IMPRESSION: 1. Hematuria with anemia, resolved. 2. Gram-positive bacteremia with repeat cultures pending. 3. Leukocytosis, query myelodysplastic disorder. 4. Status post cerebrovascular accident with left hemiparesis. 5. Status post bilateral mastectomy for breast carcinoma. 6. History of non-Hodgkin's lymphoma. 7. Status post splenectomy. PLAN: We will initiate physical therapy for flexibility and mobility. Recheck labs in a.m. We will also discuss with Dr. Delgado. She has been seen by him before. Dictated By: SANJUANITA FARRELL MD, SR/NTS Conf#: [id number] DID#: [id number]
[2018-11-11 20:25] VITALS: BP 142/67; PULSE 95; RESP 18
[2018-11-11] MEDS: ATORVASTATIN 40 MG TAB PO SCH (20:55)
[2018-11-11] MEDS: SENNA TAB PO SCH (20:55)
[2018-11-12 02:45] VITALS: BP 141/70; PULSE 98; RESP 18
[2018-11-12] MEDS: POTASSIUM CHLORIDE 40 MEQ in SOD CHLORIDE 0.45% 1,000 ML IV SCH ×2 (05:44→17:27)
--- NOTE | 2018-11-12 06:11 | NUR ---
END OF SHIFT REPORT Pt alert and oriented x3 with intermittent confusion. Pt on bed in low position with call light within reach and bed alarm activated. Vitals stable. All due meds given. Pt repositioned q2 hours. Pt with multiple episodes of diarrhea due to c.diff. Will endorse pt to AM shift nurse for continuation of care. Addendum: 11/12/18 at 0622 by LB YOST RN Error. Pt did not have diarrhea due to c.diff. Wrong pt.
[2018-11-12] MEDS: LEVOTHYROXINE 75 MCG TAB PO SCH (07:18)
[2018-11-12 08:00] VITALS: BP 139/76; PULSE 90; RESP 18
[2018-11-12] MEDS: INSULIN ASPART [NOVOLOG] 3 ML PEN SC SCH ×4 (08:00→20:52)
[2018-11-12] MEDS: DOCUSATE SODIUM 100 MG CAP PO SCH ×2 (08:18→20:53)
[2018-11-12] MEDS: BENZTROPINE 1 MG TAB PO SCH ×2 (08:18→20:53)
[2018-11-12] MEDS: VENLAFAXINE (XR) 75 MG CAP PO SCH ×2 (08:18→20:53)
[2018-11-12] MEDS: INSULIN DETEMIR [LEVEMIR] (100 UNITS/ML) SYG SC SCH (08:19)
[2018-11-12] MEDS: AMLODIPINE 10 MG TAB PO SCH (08:19)
--- NOTE | 2018-11-12 09:40 | NUR ---
PT evaluation Therapy day number 1 Evaluation Start Time 09:40 Evaluation End Time 10:40 Evaluation Total Time 60 min Subjective Current complaint of pain Pain Scale NUMERIC Pain Intensity 1 (0-10) Patient Stated Goal for Pain Relief 0 (0-10) Pain Level Comment R foot, pt unable to specify exact location Pre Treatment Vital Signs Stable Yes Exercise Assessment Label Left Upper Extremity Exercise Type Manual Stretching Additional Exercise Comments joint approximation LUE Supine to Sit Dependent Bed Mobility Sit to Supine Dependent Additional Mobility Comments 2P max A supine to sit, max A of 1 to roll L, Max A of 1, min of 2P roll R Static Sitting Balance Poor Dynamic Sitting Balance Poor Safety Judgement Poor Activity Tolerance Poor Equipment Present IV pump Post Treatment Pain Intensity 0 0-10 Quality Indicators Light headedness Additional Post Treatment Comment See note Total Minutes 60 Total Units 4 PT Technical Record Comment 73 yo female presents with severe hematuria, admitted from SNF. Patient previously admitted to [facility]U 3 weeks prior secondary to R aguirre radiate infarct with subsequent DC to SNF PMH: diabetes mellitus type 2, hypertension, hyperlipidemia, hypothyroidism and history of gastroesophageal reflux disease PSH: bilateral mastectomy for breast CA, a prior history of Hodgkin disease, status post splenectomy. Also has had right shoulder surgery and bilateral knee surgeries. Precaution: Fall risk PLOF: per notes from previous admit, prior to CVA lives in home no stairs to enter, 2 stairs within home with 24 hr care, ambulates with cane and FWW, mod I. However since has been max A/2P assist for bed mobility and transfers. S: Patient in bed, agreeable to PT evaluation. Pt cleared for activity per RN O: PT evaluation completed, pt returned back to bed following therapy intervention with call light within reach in direct care of RN. No reports of pain or shortness of breath. Lightheadedness with change in position but symptoms subsided within 2 minutes. Spoke to RN regarding pt response to activity and PT plan of care A: Patient presents with LUE flexion synergy pattern throughout with increase tone of elbow flexors, wrist supinators and wrist flexors. In sitting patient retropulses with mild pushers to L. Patient presents with L sided neglect but with encouragement able to track past midline. Patient receptive to PT instruction however presents with limited endurance due to profound deconditioning. Patient could benefit from skilled inpatient PT inhouse to improve strength, endurance, and functional mobility. Recommend continued SNF level therapy post hospitalization when cleared by MD. Dorsey: Progress as tolerated
[2018-11-12] MEDS: VANCOMYCIN 750 MG in SOD CHLORIDE 0.9% 150 ML IVPB SCH (10:30)
--- NOTE | 2018-11-12 12:41 | NUR ---
Vancomycin per Rx Vancomycin trough = 14.4 (drawn at 10:02) Dose = 750 mg q12h CC: CoNS blood culture WBC 18.9 BUN/Scr 6/0.64 A/P: Continue Vancomycin 750 mg IVPB q12h. Per RN Nona, patient lost IV access. RN will follow up with time to re-schedule doses. Pharmacy to follow.
[2018-11-12 14:00] VITALS: BP 160/70; PULSE 101; RESP 18
[2018-11-12] MEDS: METHYLPREDNISOLONE 40 MG INJ IV SCH ×2 (14:42→23:15)
[2018-11-12] MEDS: ACETAMINOPHEN 325 MG TAB PO PRN ×2 (16:22→20:57)
--- NOTE | 2018-11-12 18:36 | NUR ---
EOSS Patient in no acute distress during shift. Due medications given. Vancomycin DC'd by MD today for rash noted on forearm and shoulder, patient started on IV Solumedrol. IV fluids infusing. Patient medicated with Tylenol x 1 for pain, reports adequate relief. Morales catheter patent and draining. Blood glucose monitored before meals, no insulin coverage needed. Patient with a poor appetite, snacks given between meals, assisted as tolerated by patient. Turned Q2H, kept clean and dry. Hourly rounds done, call light in reach. Will monitor and endorse plan of care to oncoming shift.
[2018-11-12 19:55] VITALS: BP 158/78; PULSE 101; RESP 18
[2018-11-12] MEDS: ATORVASTATIN 40 MG TAB PO SCH (20:54)
[2018-11-12] MEDS: SENNA TAB PO SCH (20:55)
[2018-11-13] VITALS (7 sets, daily range): BP systolic 114–190; BP diastolic 64–99; PULSE 90–117; RESP 16–18
[2018-11-13] MEDS: LORAZEPAM 1 MG TAB PO PRN (01:49)
--- NOTE | 2018-11-13 05:06 | NUR ---
END OF SHIFT NOTES Pt given prn clonidine x1 for elevated bp and prn ativan x 1 for anxiety. Pt medicated for pain x1 with relief. Pt had 1 bm, incontinent care provided. Bed alarm on; pt instructed to use call light. Due meds given. IVF running.
[2018-11-13] MEDS: LEVOTHYROXINE 75 MCG TAB PO SCH (06:16)
[2018-11-13] MEDS: POTASSIUM CHLORIDE 40 MEQ in SOD CHLORIDE 0.45% 1,000 ML IV SCH ×2 (06:16→18:35)
[2018-11-13] MEDS: VENLAFAXINE (XR) 75 MG CAP PO SCH ×2 (08:16→20:09)
[2018-11-13] MEDS: DOCUSATE SODIUM 100 MG CAP PO SCH ×2 (08:16→20:09)
[2018-11-13] MEDS: BENZTROPINE 1 MG TAB PO SCH ×2 (08:16→20:09)
[2018-11-13] MEDS: AMLODIPINE 10 MG TAB PO SCH (08:17)
[2018-11-13] MEDS: METHYLPREDNISOLONE 40 MG INJ IV SCH (08:17)
[2018-11-13] MEDS: INSULIN DETEMIR [LEVEMIR] (100 UNITS/ML) SYG SC SCH (08:19)
[2018-11-13] MEDS: INSULIN ASPART [NOVOLOG] 3 ML PEN SC SCH ×4 (08:20→20:11)
[2018-11-13] MEDS: ACETAMINOPHEN 325 MG TAB PO PRN ×2 (10:48→19:41)
--- NOTE | 2018-11-13 10:52 | PN ---
DATE: 11/12/2018 SUBJECTIVE: The patient has severe erythematous rash in the posterior chest wall, pruritic. PHYSICAL EXAMINATION: VITAL SIGNS: Temperature 98.0, blood pressure 110/76, O2 saturation 95% on 2 liters nasal cannula. LUNGS: Clinically clear. HEART: S1, S2 with no definite gallops. EXTREMITIES: No edema. LABORATORY DATA: WBC count 18.9, hematocrit 34.5, platelet count 447,000. Sodium 137, potassium 3.9 . IMPRESSION: 1. Allergic dermatitis, possibly vancomycin. 2. Hematuria, resolved. 3. Anemia with leukocytosis, query myelodysplastic disorder. 4. Status post cerebrovascular accident with left hemiparesis. 5. Status post bilateral mastectomy for breast carcinoma. 6. History of non-Hodgkin's lymphoma. 7. Status post splenectomy. PLAN: We will discontinue vancomycin. Give 1 dose of Solu-Medrol. We will discuss with Dr. Brian Delgado. Dictated By: SANJUANITA FARRELL MD, SR/CHRISTIAN Conf#: [id number] DID#: [id number]
--- NOTE | 2018-11-13 14:08 | CONS ---
DATE OF ADMISSION: 11/05/2018 DATE OF CONSULTATION: 11/13/2018 REQUESTING PHYSICIAN: José Miguel Emmanuel MD REASON FOR CONSULTATION: Leukocytosis. Dear Dr. Emmanuel: Thank you very much for asking me to see this very pleasant patient in hematologic and oncologic cons ultation. As you know, I am very familiar with Ms. Carmona who is a 73-year-old female who I have been following for many years. The patient does have a history of Hodgkin's lymphoma which was origi hi diagnosed in . The patient at that time was treated with radiation therapy. The patient did have a staging laparotomy which included a splenectomy. The patient did not receive chemotherapy and has been free of disease since the original diagnosis and treatment. The patient is now admitted to [facility] after being found to have severe hematuri a while at a convalescent facility. On admission on 11/08/2018, the patient had a white count of 13,500 with an absolute neutrophil count of 9200, hemoglobin was 9.2, hematocrit 28.9 and platelet count 360,000. Today, the patient's white count is 16,500 with an absolute neutrophil count of 14,400, hemoglobin 11.4, hematocrit 34.[address] atelet count 459,000. The patient's pro time is 14.6 seconds, INR 1.12, PTT 28 seconds, sodium 137, potassium 3.9, creatini ne 0.64, BUN 6. The patient on admission had a urinalysis which did reveal greater than 182 white blood cells per hig h power field. There were 52 white blood cells per high power field. Urine cultures thus far show no growth. The patient did have 1 blood culture which was positive for coagulase negative staph on 04/05/2018. This was sensitive to doxycycline, rifampin and vancomycin. On admission, the patient did have a chest x-ray which showed no acute disease or changes. An ultras ound of the pelvis was not diagnostic. As noted, this patient does have a history of a splenectomy. The patient was seen by me during the hospitalization of 04/14/2018 with leukocytosis. The patient w as hospitalized at that time after having a fall at home and not being able to help up for 1 or 2 day s. Did have some rhabdomyolysis at that time and did spend sometime in acute rehabilitation. Since that time, the patient, however, was readmitted approximately 2 or 3 weeks ago with a left-side d weakness and was found to have evidence of a cerebral infarct involving the right aguirre radiata. The patient was in acute rehab at that time following that and did well and was transferred back to [facility]. PAST MEDICAL HISTORY: As mentioned, patient's past medical problems include a diagnosis of Hodgkin's lymphoma in the . She has also had bilateral invasive carcinoma of the breast. She has had bi lateral mastectomies. Did not require chemotherapy. Other past medical problems include a history of diabetes mellitus type 2 as well as hypertension, hy perlipidemia, hypothyroidism and history of GERD. PAST SURGICAL HISTORY: Include a staging laparotomy with splenectomy. The patient has also had bila teral mastectomies and right shoulder and bilateral knee surgeries. ALLERGIES: INCLUDE: 1. PENICILLIN. 2. SULFA. 3. HYDROMORPHONE. MEDICATIONS PRIOR TO ADMISSION: Included: 1. Enoxaparin 40 mg subcutaneous daily. 2. Amlodipine 10 mg daily. 3. Atorvastatin 40 mg daily. 4. Aspirin 81 mg daily. 5. Ditropan ____ twice a day. 6. Lorazepam 1 mg q.8 hours p.r.n. 7. Venlafaxine 75 mg p.o. b.i.d. 8. Levothyroxine 75 mcg daily. 9. Insulin 10 units subcutaneous q.a.m. PHYSICAL EXAMINATION: GENERAL: At this time reveals a well-developed but obese female who is lethargic but in no acute dis tress. VITAL SIGNS: Temperature 97.8, pulse 100 per minute and regular, respirations 16, blood pressure 148 /71 and pulse oximetry 98% on 2 liters by nasal cannula. SKIN: Pale and scattered ecchymoses, no petechiae or rashes. HEENT: Normocephalic. No evidence of trauma. Pupils are equal, round, reactive to light and accomm odation. Sclerae are nonicteric. Oral mucosa is moist without lesions. Tongue is well papillated. There is no gingival hyperplasia, no hypertrophy of Waldeyer ring, no mucosal telangiectasias. NECK: Supple. No jugular venous distention or thyroid enlargement. No carotid bruits. CHEST: Clear to auscultation and percussion. No rhonchi, wheezes, rales or rubs. BREASTS: Both breasts are bilaterally surgically absent. There are no chest wall nodules or axillar y masses. HEART: Regular sinus rhythm. No S3, S4 or murmurs. No rubs. ABDOMEN: Obese, but soft. There are no masses or ascites. Bowel sounds are active. EXTREMITIES: Good range of motion. No clubbing, no edema or cyanosis. No palpable cords or Homans sign. NEUROLOGIC: Normal. DISCUSSION: The patient's peripheral blood smear has been reviewed. Red blood cell morphology is no rmal. White blood cells are mildly increased in number with a left shift. There is a mild increase in bands, but there are no immature white blood cells such as myelocytes, metamyelocytes or blasts. There is mild toxic granulation, but no Dohle bodies seen in the polys. There are no hypersegmented polys, no nucleated red blood cells. Lymphocytes are normal in number and appearance. There are no atypical or "reactive" lymphocytes. Platelets are mildly increased in number and there are large and unusual platelet forms seen. As noted, this patient has had a prior splenectomy. For this reason, she is likely to have a chronic mild leukocytosis as well as thrombocytosis. The unusual enlarged platelet forms seen on peripheral blood are consistent with this as well. When the patient was here in 03/2018 after the fall which led to acute rehab stay, the patient was ev aluated at that time because she also had a leukocytosis. At that time, the JAK2 mutation analysis a s well as BCR-ABL gene rearrangement studies were negative. The patient's uric acid at that time was 6.8 and LDH was 342. I feel this patient's mild leukocytosis is due to the underlying splenectomized status as well as any mild infection and/or inflammatory state. I do not feel there is any evidence of a myeloproliferative neoplasm (MPN). Also, I find no evidence of metastatic breast carcinoma. The patient does recall she has had bilater al invasive carcinoma of the breast. I have requested repeat LDH and uric acid. We will also obtain a CEA and CA 27-29. Once again, thank you very much for the opportunity of participating in the medical care of this very pleasant patient. I will be happy to follow the patient with you and assist in her hematologic and oncologic evaluation and follow up as necessary. Dictated By: JUNITO RUIZ MD SR/CHRISTIAN Conf#: [id number] DID#: [id number] CC: JOSÉ MIGUEL EMMANUEL MD;*End*
--- NOTE | 2018-11-13 19:00 | NUR ---
End of Shift Summary: Pt. A/Ox4, VSS, in no acute distress. Pt. c/o pain once this shift, pain meds given prn with adequate relief. Accuchecks AC/HS; adequate coverage given. Pt. here for hematuria and sepsis. IVF fluids running. Potassium low today; Morales patent and draining. Labs ordered for tomorrow. Turned and repositioned q2h and as needed. Bed alarm on, call light within reach, bed in low and locked position, hourly rounding done. Will continue to monitor and endorse care to oncoming nurse.
[2018-11-13] MEDS: SENNA TAB PO SCH (20:09)
[2018-11-13] MEDS: ATORVASTATIN 40 MG TAB PO SCH (20:09)
--- NOTE | 2018-11-13 21:37 | PN ---
DATE: 11/13/2018 SUBJECTIVE: The patient is lethargic. Denies any cough, sore throat, chest pain, or palpitations. PHYSICAL EXAMINATION: VITAL SIGNS: Temperature 97.8, blood pressure 148/71, O2 sats 98% on 2 L nasal cannula. HEENT: Mild pallor without cyanosis. Tongue is coated. No exudates noted over the oropharynx. NECK: No lymphadenopathy. LUNGS: Clinically clear. HEART: S1 and S2 heard. No definite gallops. EXTREMITIES: No edema. LABORATORY DATA: WBC count 16.5 with hematocrit 34.7 and platelet count 457,000. Glucose level is i n the normal range. LDH is 630. Dr. Delgado's hematology/oncology consultation greatly appreciated. IMPRESSION: 1. Persistent leukocytosis, concern about myelodysplastic disorder. 2. Allergic dermatitis, possibly secondary to vancomycin, improving. 3. Hematuria, resolved. 4. Status post cerebrovascular accident with left hemiparesis. 5. Status post bilateral mastectomy for breast cancer. 6. History of non-Hodgkin's lymphoma. 7. Status post splenectomy. PLAN: We will observe off antibiotics. Follow up oncology recommendations per Dr. Delgado. We will consider discharge after hematologically cleared. Dictated By: SANJUANITA FARRELL MD SR/CHRISTIAN Conf#: [id number] DID#: [id number]
[2018-11-14 01:58] VITALS: BP 149/72; PULSE 88; RESP 18
--- NOTE | 2018-11-14 05:22 | NUR ---
EOSS VSS. Pt medicated for pain x 1, effective. No insulin SC needed. Pt ate one string cheese and said she will drink diet cranberry juice with her morning medication. Pt had 1 bm, incontinent care provided. Due meds given; IVF running. Pt instructed to use call light.
[2018-11-14] MEDS: LEVOTHYROXINE 75 MCG TAB PO SCH (06:06)
[2018-11-14] MEDS: INSULIN ASPART [NOVOLOG] 3 ML PEN SC SCH ×4 (08:00→20:42)
[2018-11-14] MEDS: POTASSIUM CHLORIDE 40 MEQ in SOD CHLORIDE 0.45% 1,000 ML IV SCH ×2 (08:01→20:49)
[2018-11-14] MEDS: BENZTROPINE 1 MG TAB PO SCH ×2 (08:24→20:41)
[2018-11-14] MEDS: DOCUSATE SODIUM 100 MG CAP PO SCH ×2 (08:24→20:42)
[2018-11-14] MEDS: VENLAFAXINE (XR) 75 MG CAP PO SCH ×2 (08:24→20:42)
[2018-11-14 08:27] VITALS: BP 148/78; PULSE 91; RESP 17
[2018-11-14] MEDS: AMLODIPINE 10 MG TAB PO SCH (08:28)
[2018-11-14] MEDS: INSULIN DETEMIR [LEVEMIR] (100 UNITS/ML) SYG SC SCH (08:37)
[2018-11-14] MEDS: ACETAMINOPHEN 325 MG TAB PO PRN (08:52)
--- NOTE | 2018-11-14 10:43 | PN ---
Date/Time of Note Date/Time of Note DATE: 11/14/18 TIME: 10:36 Assessment/Plan VTE Prophylaxis Risk score (from Nsg)>0 risk: 9 SCD applied (from Ns): Yes Pharmacological prophylaxis: NA/contraindicated Pharm contraindication: bleeding Lines/Catheters IV Catheter Type (from Nrsg): Peripheral IV Urinary Cath still in place: Yes Reason Cath still needed: other (indicate) Assessment/Plan Assessment/Plan A: constipation leukocytosis hematuria cva with left sided weakness DM P: cont stool softener, senna MOM prn encourage increased hydration cont current rx Subjective 24 Hr Interval Summary Free Text/Dictation Covering for Dr. Emmanuel. Pt c/o hard stools. Has bm almost daily, on stool softener and senna. Has some lower abd pain after eating, feels like needs to have bm and when does stool is hard causing rectal pain. Pt feels b tomeka after bm. Also taking pain meds. Rash improved. No cp, sob, urinary sx. Exam/Review of Systems Vital Signs Vitals Vital Signs Date Temp Pulse Resp B/P (MAP) Pulse Ox O2 O2 Flow FiO2 Time Delivery Rate 11/14/18 97.6 91 17 148/78 100 Nasal 2.0 08:27 (101) Cannula Intake and Output 11/13/18 11/13/18 11/14/18 1515:00 23:00 07:00 IntakeIntake Total 1000 ml 1020 ml OutputOutput Total 1775 ml BalanceBalance 1000 ml -755 ml Exam gen- nad, nontoxic lungs- CTA heart- RRR abd- +bs, soft, nontender ext- no edema YESSICA BUI MD Nov 14, 2018 10:43
--- NOTE | 2018-11-14 11:00 | PN ---
DATE: 11/14/2018 SUBJECTIVE: Patient has no new complaints. Remains lethargic and mildly confused. She denies any s haking chills, no night sweats. OBJECTIVE: GENERAL: The patient is a well-developed, chronically ill-appearing, obese female in no acute distre ss. VITAL SIGNS: Temperature 97.6, pulse 91 per minute and regular, respirations 17, blood pressure 148/ 78, pulse oximetry 100% on 2 liters of oxygen via nasal cannula. SKIN: No ecchymosis. No petechiae, rashes. HEENT: Normocephalic. No evidence of trauma. Pupils equal, round, react to light and accommodation . Sclerae nonicteric. Oral mucosa is moist without lesions. NECK: Supple. No jugular venous distention or thyroid enlargement. CHEST: Clear to auscultation and percussion. No rhonchi, wheezes, rales or rubs. BREASTS: Bilateral surgical absence of breasts with no chest wall nodules. No skin nodules. HEART: Regular sinus rhythm, no S3, S4 or murmurs. ABDOMEN: Obese without masses or ascites. EXTREMITIES: No clubbing, edema or cyanosis. No palpable cords or Homans sign. There is no lymphed ramón of either arm. NEUROLOGIC: Reveals a left-sided hemiparesis as well as lethargy. No CBC done today. LDH 630. Uric acid 6.4 and CEA 1.3. ASSESSMENT: 1. Hematuria, resolved. 2. Leukocytosis, most likely reactive and related to status post splenectomy status. 3. Status post right-sided cerebrovascular accident with left hemiparesis. 4. Bilateral breast carcinoma. 5. History of Hodgkin's lymphoma. As noted, review of peripheral smear does not show a leukoerythroblastic picture suggesting any type of bone marrow infiltrative process nor a myeloproliferative neoplasm. Uric acid is normal, but LDH is minimally increased. We will repeat CBC tomorrow as well as an LDH. Previous genetic studies including JAK2 mutation and BCR-ABL gene rearrangement studies have been neg ative. This was last done approximately 4 months ago. Dictated By: JUNITO RUIZ MD SR/NTS Conf#: [id number] DID#: [id number] CC: SANJUANITA FARRELL MD;*EndCC*
[2018-11-14 14:00] VITALS: BP 140/82; PULSE 100; RESP 16
--- NOTE | 2018-11-14 19:31 | NUR ---
EOSS Patient in no acute distress during shift. Due medications given. IV fluids infusing. Patient medicated with Tylenol x 1 for pain, reports adequate relief. Morales catheter patent and draining. Blood glucose monitored before meals, no insulin coverage needed. Patient with a poor appetite, snacks given between meals, assisted as tolerated by patient. Turned Q2H, kept clean and dry. Hourly rounds done, call light in reach. Will monitor and endorse plan of care to oncoming shift.
[2018-11-14 20:00] VITALS: BP 136/80; PULSE 90; RESP 18
[2018-11-14] MEDS: SENNA TAB PO SCH (20:03)
--- NOTE | 2018-11-14 20:03 | NUR ---
multiple bowel movements today.
[2018-11-14] MEDS: ATORVASTATIN 40 MG TAB PO SCH (20:42)
[2018-11-15] MEDS: LEVOTHYROXINE 75 MCG TAB PO SCH (05:16)
[2018-11-15] MEDS: INSULIN ASPART [NOVOLOG] 3 ML PEN SC SCH ×4 (08:00→20:44)
[2018-11-15 08:25] VITALS: BP 142/71; PULSE 94; RESP 17
[2018-11-15] MEDS: DOCUSATE SODIUM 100 MG CAP PO SCH ×2 (08:41→20:41)
[2018-11-15] MEDS: VENLAFAXINE (XR) 75 MG CAP PO SCH ×2 (08:42→20:41)
[2018-11-15] MEDS: AMLODIPINE 10 MG TAB PO SCH (08:42)
[2018-11-15] MEDS: BENZTROPINE 1 MG TAB PO SCH ×2 (08:42→20:42)
[2018-11-15] MEDS: INSULIN DETEMIR [LEVEMIR] (100 UNITS/ML) SYG SC SCH (08:44)
[2018-11-15] MEDS: POTASSIUM CHLORIDE 40 MEQ in SOD CHLORIDE 0.45% 1,000 ML IV SCH (10:30)
--- NOTE | 2018-11-15 11:02 | PN ---
Date/Time of Note Date/Time of Note DATE: 11/15/18 TIME: 10:58 Assessment/Plan VTE Prophylaxis Risk score (from Nsg)>0 risk: 3 SCD applied (from Ns): Yes Pharmacological prophylaxis: NA/contraindicated Pharm contraindication: other Lines/Catheters IV Catheter Type (from Nrsg): Peripheral IV Urinary Cath still in place: Yes Reason Cath still needed: other (indicate) Assessment/Plan Assessment/Plan A: hyperkalemia leukocytosis- increased, afebrile, recent solumedrol constipation hematuria CVA with residual left weakness DM P: d/c ivf encourage hydration cont current rx monitor labs hopefully back to snf soon Subjective 24 Hr Interval Summary Free Text/Dictation Covering for Dr. Emmanuel. Pt feeling better today. No abd pain, had multiple bms. Appetite improved. No cp, sob. Exam/Review of Systems Vital Signs Vitals Vital Signs Date Temp Pulse Resp B/P (MAP) Pulse Ox O2 O2 Flow FiO2 Time Delivery Rate 11/15/18 98.2 94 17 142/71 96 Nasal 2.0 08:25 (94) Cannula Intake and Output 11/14/18 11/14/18 11/15/18 1515:00 23:00 07:00 IntakeIntake Total 100 ml 750 ml 950 ml OutputOutput Total 1400 ml BalanceBalance 100 ml 750 ml -450 ml Exam gen- nad, nontoxic lungs- CTA heart- RRR abd- +BS, soft, nontender ext- no edema YESSICA BUI MD Nov 15, 2018 11:02
--- NOTE | 2018-11-15 12:19 | NUR ---
Case Mngt: Received a call from Ladonna at [facility] (T: [phone]) and stated will accept the patient back when stable for discharge, please check for bed status from time to time.
[2018-11-15 16:27] VITALS: BP 136/68; PULSE 93; RESP 17
--- NOTE | 2018-11-15 17:11 | NUR ---
SHIFT SUMMARY REPORT NO ACUTE CHANGES IN PATIENT'S CONDITION DURING SHIFT. ROUTINE MEDICATION WAS GIVEN SCHEDULED. NO COMPLAINTS OF PAIN. PATIENT'S APPETITE CONTINUES TO FLUCTUATE. BED BATH WITH HIBICLENS WAS DONE THIS AFTERNOON. HOURLY ROUNDING DONE. BED LEFT IN LOWEST POSITION AND CALL LIGHT WITHIN REACH.
[2018-11-15 20:00] VITALS: BP 142/76; PULSE 88; RESP 18
[2018-11-15] MEDS: ATORVASTATIN 40 MG TAB PO SCH (20:41)
[2018-11-15] MEDS: SENNA TAB PO SCH (20:41)
[2018-11-16 02:00] VITALS: BP 150/77; PULSE 90; RESP 18
[2018-11-16] MEDS: LEVOTHYROXINE 75 MCG TAB PO SCH (05:39)
--- NOTE | 2018-11-16 05:53 | NUR ---
SHIFT NOTES: PATIENT SLEPT ON AND OFF.NO DIABETIC REACTION NOTED.NO COMPLAINTS OF PAIN.TURNED AND REPOSITIONED Q 2HOURS.KEPT CLEAN AND DRY.NO RESP. DISTRESS V/S STABLE.
--- NOTE | 2018-11-16 07:53 | PN ---
DATE: 11/15/2018 SUBJECTIVE: Patient has no new complaints. Has had minimal lower abdominal pain. Not complaining o f nausea or vomiting. The patient had no fevers or chills. She has had no night sweats and no complaints of bone pain. OBJECTIVE: GENERAL: The patient is a well-developed, obese, chronically ill-appearing female in no acute distre ss. VITAL SIGNS: Temperature 98.2 orally, pulse 94, respirations 17, blood pressure 142/71, pulse oximet ry 96% on 2 liters. SKIN: No ecchymosis, no petechiae. HEENT: Normocephalic. No evidence of trauma. Pupils equal, round, react to light and accommodation . Sclerae are nonicteric. Oral mucosa is moist without lesions. NECK: Supple. No jugular venous distention or thyroid enlargement. No carotid bruits. CHEST: Clear to auscultation and percussion. No rhonchi, wheezes, rales or rubs. NODES: No palpable adenopathy in any lymph node-bearing area. BREASTS: Bilateral mastectomies. There are no subcutaneous or chest wall nodules or axillary masses . ABDOMEN: Mildly obese, but soft. There are no masses or ascites. Bowel sounds are active. EXTREMITIES: No clubbing. No edema or cyanosis. No palpable cords or Homans sign. No lymphedema o f either arm. NEUROLOGIC: No focal neurologic abnormalities. The patient is awake and alert. Does have continued left hemiparesis. White blood cell count 20,500 with absolute neutrophil count of 14,500, hemoglobin 11.7, hematocrit 3 5.4 and platelet count 402,000. Sodium 138, potassium 5.3, creatinine 0.62, BUN 12, total bilirubin 0.3, AST 43, ALT 27, alkaline mary sphatase 9.4. All cultures are no growth, except for the original blood culture on 11/05/2018 that showed coagulase negative staph. Urine culture on admission on 11/05/2018 also was no growth. CA 27-29 is 21. As previously noted, CEA is 1.3. ASSESSMENT: 1. Hematuria, resolved 2. 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 3. 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 4. Bilateral breast carcinoma, no recurrence. 5. History of Hodgkin's lymphoma, no recurrence. The patient's white count has increased slightly. Mostly mature neutrophils. We will review the patient's peripheral smear again today. No other evaluation indicated at this time. The only option would be to perform a bone marrow aspira tion and biopsy. I do not actually feel this is indicated at the present time. Dictated By: JUNITO RUIZ MD SR/NTS Conf#: [id number] DID#: [id number] CC: SANJUANITA FARRELL MD;*EndCC*
[2018-11-16] MEDS: INSULIN ASPART [NOVOLOG] 3 ML PEN SC SCH ×4 (08:00→21:00)
[2018-11-16 08:10] VITALS: BP 160/79; PULSE 95; RESP 16
[2018-11-16] MEDS: VENLAFAXINE (XR) 75 MG CAP PO SCH ×2 (08:16→21:10)
[2018-11-16] MEDS: DOCUSATE SODIUM 100 MG CAP PO SCH ×2 (08:16→21:08)
[2018-11-16] MEDS: BENZTROPINE 1 MG TAB PO SCH ×2 (08:16→21:08)
[2018-11-16] MEDS: AMLODIPINE 10 MG TAB PO SCH (08:17)
[2018-11-16] MEDS: INSULIN DETEMIR [LEVEMIR] (100 UNITS/ML) SYG SC SCH (08:20)
--- NOTE | 2018-11-16 11:26 | PN ---
Date/Time of Note Date/Time of Note DATE: 11/16/18 TIME: 11:23 Assessment/Plan VTE Prophylaxis Risk score (from Ns)>0 risk: 10 SCD applied (from Ns): Yes Pharmacological prophylaxis: NA/contraindicated Pharm contraindication: bleeding Lines/Catheters IV Catheter Type (from Nrsg): Saline Lock Urinary Cath still in place: No Assessment/Plan Assessment/Plan A: leukocytosis - sl increase, afebrile without localizing sx hematuria CVA with residual hyperkalemia constipation DM P: d/c lazcano UA, urine cx cont current rx monitor labs to snf soon Subjective 24 Hr Interval Summary Free Text/Dictation Pt feeling better. No abd pain, cp, sob. Exam/Review of Systems Vital Signs Vitals Vital Signs Date Temp Pulse Resp B/P (MAP) Pulse Ox O2 O2 Flow FiO2 Time Delivery Rate 11/16/18 98.9 95 16 160/79 97 Nasal 2.0 08:10 (106) Cannula Intake and Output 11/15/18 11/15/18 11/16/18 1515:00 23:00 07:00 IntakeIntake Total 300 ml 240 ml OutputOutput Total 750 ml 450 ml BalanceBalance -450 ml -210 ml Exam gen- nad, nontoxic lungs- CTA heart- RRR abd- +BS, soft, nontender ext- no edema YESSICA BUI MD Nov 16, 2018 11:26
[2018-11-16 14:10] VITALS: BP 153/72; PULSE 91; RESP 16
--- NOTE | 2018-11-16 18:02 | PN ---
DATE: 11/16/2018 SUBJECTIVE: Patient is unchanged. No new specific complaints. OBJECTIVE: GENERAL: The patient is a well-developed female, mildly obese. No acute distress. VITAL SIGNS: Temperature 98, pulse 91, respirations 16, blood pressure 153/72, pulse oximetry 94% on 2 liters by nasal cannula. SKIN: No ecchymosis. No petechiae or rashes. HEENT: Normocephalic. No evidence of trauma. Pupils equal, round, reactive to light and accommodat ion. Sclerae nonicteric. Oral mucosa is moist without lesions. NECK: Supple. No jugular venous distention, thyromegaly. No carotid bruit. CHEST: Clear to auscultation and percussion. No rhonchi, wheezes, rales, or rubs. BREASTS: Bilateral mastectomies. The incisions are well healed. There are no subcutaneous nodules. No chest wall masses. No axillary masses. HEART: Regular sinus rhythm. No S3, S4, or murmurs. ABDOMEN: Obese without masses or ascites. EXTREMITIES: No clubbing. No edema or cyanosis. No palpable cords or Homans sign. NEUROLOGIC: Normal. LABORATORY: White blood cell count 22,900 with an absolute neutrophil count of 18,100, hemoglobin 11 .7, hematocrit 36.0, and platelet count is 463,000. Sodium 140, potassium 3.9, creatinine 0.78, BUN 14. ASSESSMENT: 1. Hematuria, resolved. 2. Leukocytosis, most likely reactive and related to the patient's post-splenectomy state. 3. Status post right CVA accident with residual hemiparesis. 4. Bilateral breast carcinoma. No recurrence. 5. History of Hodgkin's lymphoma. No recurrence. I have reviewed the patient's most recent peripheral smear. Again, there is leukocytosis, but this i s mostly a pure neutrophilia. There is no significant increase in bands. There is no toxic granulat ion or vacuolization. No further investigations recommend at this time. Dictated By: JUNITO RUIZ MD SR/NTS Conf#: [id number] DID#: [id number] CC: SANJUANITA FARRELL MD;*EndCC*
--- NOTE | 2018-11-16 18:19 | NUR ---
EOSS Patient in no acute distress during shift. Due medications given. Morales catheter removed per MD order, urine sample for UA + C&S sent prior to removal. Blood glucose monitored before meals, no insulin coverage needed. Patient with a poor appetite, snacks given between meals, assisted and encouraged as tolerated by patient. Turned Q2H, kept clean and dry. Hourly rounds done, call light in reach. Will monitor and endorse plan of care to oncoming shift.
[2018-11-16 19:30] VITALS: BP 125/60; PULSE 95; RESP 20
[2018-11-16] MEDS: ATORVASTATIN 40 MG TAB PO SCH (21:08)
[2018-11-16] MEDS: SENNA TAB PO SCH (21:08)
[2018-11-17 01:40] VITALS: BP 131/69; PULSE 104; RESP 20
[2018-11-17] MEDS: LEVOTHYROXINE 75 MCG TAB PO SCH (06:11)
--- NOTE | 2018-11-17 06:29 | NUR ---
EOSS: Pt. rested comfortably overnight. No acute changes. All due meds given. Blood glucose monitored and no insulin coverage needed. Encouraged fluid and PO intake. Pt. had no problems urinating post lazcano removal. No hematuria. Will endorse care to oncoming nurse
[2018-11-17 07:00] VITALS: BP 148/95; PULSE 98; RESP 20
[2018-11-17] MEDS: INSULIN ASPART [NOVOLOG] 3 ML PEN SC SCH ×4 (08:00→20:22)
[2018-11-17] MEDS: VENLAFAXINE (XR) 75 MG CAP PO SCH ×2 (09:08→20:13)
[2018-11-17] MEDS: DOCUSATE SODIUM 100 MG CAP PO SCH ×2 (09:08→20:12)
[2018-11-17] MEDS: BENZTROPINE 1 MG TAB PO SCH ×2 (09:08→20:19)
[2018-11-17] MEDS: AMLODIPINE 10 MG TAB PO SCH (09:08)
[2018-11-17] MEDS: INSULIN DETEMIR [LEVEMIR] (100 UNITS/ML) SYG SC SCH (09:10)
--- NOTE | 2018-11-17 11:59 | NUR ---
Reporting suicidal family member to Police Around 1115, Meredith, sister of the pt called the nursing station and reported suicidal ideation, "I want to hurt myself" without actual plan mentioned. Meredith also stated eviction from her house is imminent, no support system such as neighbor/friends is available, and currently no electricity or water is accessible to her. Noted with depressed tone of voice, slow speech throughout the conversation. Pt agreeable with calling [employer] to report her for safety/protection purposes. Zahra, charge nurse and Isabelle nursing insurance licensing supervisor made aware of the situation. Around 1130, 911 call made, officers to be dispatched. Notified SERGIO Wilkinson.
--- NOTE | 2018-11-17 12:30 | NUR ---
PT NOTE Therapy day number 3 Subjective Denies pain Pain Scale NUMERIC Pain Intensity 0 (0-10) Patient Stated Goal for Pain Relief 0 (0-10) Pain Level Comment denies pain Pre Treatment Vital Signs Stable Yes Exercise Assessment Label Left Upper Extremity Exercise Type Manual Stretching Additional Exercise Comments L elbow/wrist/finger extension Exercise Assessment Label Right Upper Extremity Exercise Type Active ROM Additional Exercise Comments R UE crossbody reaching; L UE elbow extension AAROM using R UE Exercise Start Time 12:04 Exercise End Time 12:15 Total Exercise Time 11 min (8-127) Transfer Training Start Time 12:15 Supine to Sit Maximum Assist Bed Mobility Sit to Supine Dependent Sitting Tolerance 12 min Additional Mobility Comments Rolling to L with maxA x 1; supine<>sitting with maxA x 2PA Transfer Training End Time 12:30 Total Transfer Training Time 15 min (8-127) Static Sitting Balance Poor Dynamic Sitting Balance Poor Additional Balance Assessments Comments AP weight shifting exercises Safety Judgement Poor Activity Tolerance Poor Post Treatment Pain Intensity 0 0-10 Quality Indicators Dizziness Additional Post Treatment Comment See note Total Treament Time 26 min (8-127) Total Minutes 26 Total Units 2 PT Technical Record Comment PT NOTE S: Pt agreeable to PT session, reported fear of falling with anterior weight shifting exercises in sitting O: JOHANNY Garnett cleared pt for session. Pt received in bed, participated in interventions above. Noted continued L pusher's and L-sided neglect. Pt returned to bed, all needs in reach, bed alarm activated. RN notified of pt's status A: Pt shows improvement in bed mobility, able to roll to L with maxA x 1. Sitting balance still limited by L pusher's requiring maxA x 2 to maintain static sitting, as well as pt presenting with fear of falling when shifting weight to R side. P: Continue c PT POC O:
[2018-11-17 14:00] VITALS: BP 156/71; PULSE 93; RESP 22
--- NOTE | 2018-11-17 15:36 | PN ---
Date/Time of Note Date/Time of Note DATE: 11/17/18 TIME: 15:33 Assessment/Plan VTE Prophylaxis Risk score (from Ns)>0 risk: 6 SCD applied (from Ns): Yes Pharmacological prophylaxis: NA/contraindicated Pharm contraindication: bleeding Lines/Catheters IV Catheter Type (from Nrsg): Saline Lock Urinary Cath still in place: No Assessment/Plan Assessment/Plan A: leukocytosis improving hematuria resolved hyperkalemia resolved CVA with residual HTN DM P: cont current rx monitor labs hopefully back to snf soon Result Diagram: 11/17/18 0628 11/17/18627 Results 24hrs Laboratory Tests Test 11/16/18 17:16 11/16/18 21:24 11/16/18 23:41 11/17/18 06:28 Bedside Glucose 109 107 109 White Blood 18.6 H Count Red Blood Count 4.09 L Hemoglobin 11.8 L Hematocrit 36.2 L Mean Corpuscular 88.5 Volume Mean Corpuscular 28.9 L Hemoglobin Mean Corpuscular 32.6 Hemoglobin Stephanie nt Red Cell 15.2 H Distribution Width Platelet Count 320 # Mean Platelet 11.1 H Volume Immature 1.000 H Granulocytes % Neutrophils % 75.8 Lymphocytes % 12.5 L Monocytes % 7.0 Eosinophils % 3.1 Basophils % 0.6 Nucleated Red 0.0 Blood Cells % Immature 0.180 H Granulocytes # Neutrophils # 14.1 H Lymphocytes # 2.3 Monocytes # 1.3 H Eosinophils # 0.6 H Basophils # 0.1 Nucleated Red 0.0 Blood Cells # Sodium Level 140 Potassium Level 3.8 Chloride Level 99 Carbon Dioxide 29 Level Anion Gap 12 Blood Urea 15 Nitrogen Creatinine 0.77 Est Glomerular Filtrat Rate mL/min Glucose Level 110 Calcium Level 9.6 Test 11/17/18 08:18 11/17/18 12:35 Bedside Glucose 109 110 Subjective 24 Hr Interval Summary Free Text/Dictation Pt feeling better. Mild occ itching back. No cp, sob, abd pain. BMs okay. Exam/Review of Systems Vital Signs Vitals Vital Signs Date Temp Pulse Resp B/P (MAP) Pulse Ox O2 O2 Flow FiO2 Time Delivery Rate 11/17/18 98.2 93 22 156/71 97 Nasal 14:00 (99) Cannula 11/17/18 2.0 09:33 Intake and Output 12/11/16/18 11/17/18 1515:00 23:00 07:00 IntakeIntake Total 480 ml OutputOutput Total 500 ml BalanceBalance -500 ml 480 ml Exam gen- nad, nontoxic lungs- cta heart- RRR abd- +BS, soft, nontender ext- no edema skin- dry, peeling on back Medications Medications Current Medications Insulin Aspart (Novolog Insulin Pen) NOVOLOG *MILD* ALGORITHM WITH MEALS BEDTIME SC Last administered on 11/13/18 17:26; Admin Dose 1 UNIT; Start 11/06/18 at 08:00 Clonidine (Catapres) 0.1 mg Q4H PRN PO ELEVATED BLOOD PRESSURE Last administe red on 11/14/18 15:25; Admin Dose 0.1 MG; Start 11/05/18 at 23:00 Acetaminophen (Tylenol Tab) 650 mg Q4H PRN PO PAIN 1-510 Last administered on 11/14/18 08:52; Admin Dose 650 MG; Start 11/05/18 at 23:00 Amlodipine Besylate (Norvasc) 10 mg DAILY PO Last administered on 11/17/18 09:08; Admin Dose 10 MG; Start 11/06/18 at 09:00 Atorvastatin Calcium (Lipitor) 40 mg QHS PO Last administered on 11/16/18 21:08; Admin Dose 40 MG; Start 11/06/18 at 21:00 Benztropine Mesylate (Cogentin) 2 mg BID PO Last administered on 11/17/18 09:08; Admin Dose 2 MG; Start 11/06/18 at 09:00 Docusate Sodium (Colace) 100 mg BID PO Last administered on 11/17/18 09:08; Admin Dose 100 MG; Start 11/06/18 at 09:00 Insulin Detemir (Levemir) 10 units QAM SC Last administered on 11/17/18 09:10; Admin Dose 10 UNITS; Start 11/06/18 at 09:00 Levothyroxine Sodium (Synthroid) 75 mcg BEFORE BREAKFAST PO Last administered on 11/17/18 06:11; Admin Dose 75 MCG; Start 11/06/18 at 07:00 Lorazepam (Ativan) 1 mg Q6 PRN PO ANXIETY Last administered on 11/13/18 01:49; Admin Dose 1 MG; Start 11/05/18 at 23:00 Magnesium Hydroxide (Milk Of Mag) 30 ml DAILY PRN PO CONSTIPATION; Start 11/05/18 at 23:00 Senna (Senokot) 1 tab QHS PO Last administered on 11/16/18at 21:08; Admin Dose 1 TAB; Start 11/06/18 at 21:00 Venlafaxine HCl (Effexor Xr) 75 mg BID PO Last administered on 11/17/18at 09:08; Admin Dose 75 MG; Start 11/06/18 at 09:00 Miscellaneous Information 1 ea NOTE XX ; Start 11/06/18 at 17:00 Glucose (Glutose) 15 gm Q15M PRN PO DECREASED GLUCOSE; Start 11/06/18 at 17:00 Glucose (Glutose) 22.5 gm Q15M PRN PO DECREASED GLUCOSE; Start 11/06/18 at 17:00 Dextrose (D50w Syringe) 25 ml Q15M PRN IV DECREASED GLUCOSE; Start 11/06/18 at 17:00 Dextrose (D50w Syringe) 50 ml Q15M PRN IV DECREASED GLUCOSE; Start 11/06/18 at 17:00 Glucagon (Glucagen) 1 mg Q15M PRN IM DECREASED GLUCOSE; Start 11/06/18 at 17:00 Glucose (Glutose) 15 gm Q15M PRN BUCCAL DECREASED GLUCOSE; Start 11/06/18 at 17:00 YESSICA BUI MD Nov 17, 2018 15:36
--- NOTE | 2018-11-17 18:00 | NUR ---
End of shift report Pt in stable condition and no acute change in condition noted. BS within normal range throughout the shift. Bedbath and oral care provided. Skin intact. Will continue to monitor.
[2018-11-17 19:36] VITALS: BP 140/72; PULSE 93; RESP 18
[2018-11-17] MEDS: ATORVASTATIN 40 MG TAB PO SCH (20:12)
[2018-11-17] MEDS: SENNA TAB PO SCH (20:12)
[2018-11-18 02:20] VITALS: BP 154/73; PULSE 92; RESP 18
[2018-11-18] MEDS: LEVOTHYROXINE 75 MCG TAB PO SCH (06:05)
--- NOTE | 2018-11-18 06:45 | NUR ---
Shift Summary Pt in no acute distress. All due medications given except synthroid, which the patient refused. Pt was often disoriented during shift, though pleasant and cooperative. Pt did not sleep much during shift. Received bed bath last night. Will endorse care to next shift.
[2018-11-18 09:16] VITALS: BP 141/76; PULSE 101; RESP 18
[2018-11-18] MEDS: INSULIN ASPART [NOVOLOG] 3 ML PEN SC SCH ×4 (09:21→21:00)
[2018-11-18] MEDS: AMLODIPINE 10 MG TAB PO SCH (09:21)
[2018-11-18] MEDS: VENLAFAXINE (XR) 75 MG CAP PO SCH ×2 (09:21→21:07)
[2018-11-18] MEDS: BENZTROPINE 1 MG TAB PO SCH ×2 (09:21→21:07)
[2018-11-18] MEDS: DOCUSATE SODIUM 100 MG CAP PO SCH ×2 (09:22→21:07)
[2018-11-18] MEDS: INSULIN DETEMIR [LEVEMIR] (100 UNITS/ML) SYG SC SCH (09:22)
--- NOTE | 2018-11-18 10:38 | PN ---
DATE: 11/18/2018 SUBJECTIVE: The patient has no new complaints. No complaints of abdominal pain, no nausea or vomiti ng. She has no shaking chills. OBJECTIVE: GENERAL: The patient is a well-developed, well-nourished, mildly obese female in no acute distress. VITAL SIGNS: Temperature 98.1, pulse 100 per minute and regular, respirations 18, blood pressure 141 /76, pulse oximetry 97% on room air. SKIN: No ecchymosis, no petechiae or rashes. HEENT: Normocephalic. No evidence of trauma. Pupils equal, round, react to light and accommodation . Sclerae nonicteric. Oral mucosa moist without lesions. NECK: Supple. No jugular venous distention or thyroid enlargement. No carotid bruits. CHEST: Clear to auscultation and percussion. No rhonchi, wheezes, rales or rubs. HEART: Sinus tachycardia. No S3, S4 or murmurs. BREASTS: Bilateral surgical absence of the breasts. There are no chest wall nodules, no axillary ma sses. ABDOMEN: Mildly obese, but soft, no masses, no ascites. EXTREMITIES: Good range of motion. No clubbing, no edema or cyanosis. No palpable cords or Homans sign. NEUROLOGIC: Left-sided hemiparesis. LABS: WBC 16,800 with an absolute neutrophil count 11,800, hemoglobin 11.2, hematocrit 34.4 and plat elet count 497,000. ASSESSMENT: 1. Hematuria, resolved. 2. Leukocytosis, improving. Most likely accentuated by patient's previous splenectomy. 3. Status post right CVA with residual left-sided hemiparesis. 4. Bilateral breast carcinoma with no evidence of recurrence. 5. History of Hodgkin's lymphoma. No evidence of recurrence. Most recent peripheral blood smear has again been reviewed. There is mild leukocytosis. These are m ostly mature PMNs. There is no significant left shift. There are no immature granulocytes seen. Th ere is no increase in basophils or eosinophils. There is no other soft signs of infection such as toxic granulation or Dohle bodies. We will see again on a p.r.n. basis. I have no new recommendations at this time. Dictated By: JUNITO RUIZ MD, SR/CHRISTIAN Conf#: [id number] DID#: [id number] CC: SANJUANITA FARRELL MD;*End*
[2018-11-18 14:15] VITALS: BP 134/65; PULSE 99; RESP 18
--- NOTE | 2018-11-18 15:00 | NUR ---
Report Made for Patient's Family Member: Patient's sister Meredith called the unit, this RN spoke with Meredith and asked if she would like to be transferred to patient's room. Meredith stated her sister is at the house with her, this RN reminded Meredith her sister is here at the hospital, where she was calling. Meredith repeated herself, stating, "no, my sister is here at the house." This RN reoriented Meredith and told her again that her sister is here at the hospital. This RN asked Meredith if she was ok, was she in any danger, is there anyone there at the house with her. Meredith's speech was slurred, she stated, "no I'm here alone, but I tried to tell her that I was kidnapped last night, and she doesn't believe me." Meredith than asked to speak with her sister, and the call was transferred. This RN called Adult Protective Services to file a report for safety concern. Report # [id number] was filed with [employer] and a worker will be dispatched as soon as possible. TEA Wilkinson was also made aware of report filed.
--- NOTE | 2018-11-18 15:58 | PN ---
Date/Time of Note Date/Time of Note DATE: 11/18/18 TIME: 15:50 Assessment/Plan VTE Prophylaxis Risk score (from Ns)>0 risk: 7 SCD applied (from Ns): Yes Pharmacological prophylaxis: NA/contraindicated Pharm contraindication: bleeding Lines/Catheters IV C[facility] Type [facility]from [facility] Saline Lock Urinary Cath still in place: No Assessment/Plan Assessment/Plan A: leukocytosis- improving. Afebrile, asx. Probably due to post splenectomy and recent steroids. hematuria CVA with residual HTN DM hyperkalemia P: transfer back to [facility] cont current rx resume aspirin Result Diagram: 11/18/18 0604 11/18/18 0604 Results 24hrs Laboratory Tests Test 11/17/18 17:17 11/17/18 20:10 11/18/18 06:04 11/18/18 09:19 Bedside Glucose 107 117 128 White Blood 16.8 H Count Red Blood Count 3.91 L Hemoglobin 11.2 L Hematocrit 34.4 L Mean Corpuscular 88.0 Volume Mean Corpuscular 28.6 L Hemoglobin Mean Corpuscular 32.6 Hemoglobin Stephanie nt Red Cell 15.3 H Distribution Width Platelet Count 497 #H Mean Platelet 10.0 Volume Immature 0.700 H Granulocytes % Neutrophils % 70.6 Lymphocytes % 14.8 L Monocytes % 9.9 Eosinophils % 3.3 Basophils % 0.7 Nucleated Red 0.0 Blood Cells % Immature 0.120 H Granulocytes # Neutrophils # 11.8 H Lymphocytes # 2.5 Monocytes # 1.7 H Eosinophils # 0.6 H Basophils # 0.1 Nucleated Red 0.0 Blood Cells # Sodium Level 141 Potassium Level 3.6 Chloride Level 99 Carbon Dioxide 27 Level Anion Gap 15 H Blood Urea 13 Nitrogen Creatinine 0.78 Est Glomerular Filtrat Rate mL/min Glucose Level 104 Calcium Level 9.7 Test 11/18/18 12:48 Bedside Glucose 96 Subjective 24 Hr Interval Summary Free Text/Dictation Pt feeling better, no complaints. No cp, sob, abd pain, urinary sx. Pt never had UA/C&S performed, specimen lost. Pt'w wbc count improving, afebrile, asx. Exam/Review of Systems Vital Signs Vitals Vital Signs Date Temp Pulse Resp B/P (MAP) Pulse Ox O2 O2 Flow FiO2 Time Delivery Rate 11/18/18 97.3 99 18 134/65 97 Room Air 14:15 (88) 11/18/18 2.0 02:20 Exam gen- nad, nontoxic lungs- CTA heart- RRR abd- +BS, soft, nontender ext- no edema Medications Medications Current Medications Insulin Aspart (Novolog Insulin Pen) NOVOLOG *MILD* ALGORITHM WITH MEALS BEDTIME SC Last administered on 11/13/18 17:26; Admin Dose 1 UNIT; Start 11/06/18 at 08:00 Clonidine (Catapres) 0.1 mg Q4H PRN PO ELEVATED BLOOD PRESSURE Last administered on 11/14/18 15:25; Admin Dose 0.1 MG; Start 11/05/18 at 23:00 Acetaminophen (Tylenol Tab) 650 mg Q4H PRN PO PAIN 1-04/02 Last administered on 11/14/18 08:52; Admin Dose 650 MG; Start 11/05/18 at 23:00 Amlodipine Besylate (Norvasc) 10 mg DAILY PO Last administered on 11/18/18 09:21; Admin Dose 10 MG; Start 11/06/18 at 09:00 Atorvastatin Calcium (Lipitor) 40 mg QHS PO Last administered on 11/17/18 20:12; Admin Dose 40 MG; Start 11/06/18 at 21:00 Benztropine Mesylate (Cogentin) 2 mg BID PO Last administered on 11/18/18 09:21; Admin Dose 2 MG; Start 11/06/18 at 09:00 Docusate Sodium (Colace) 100 mg BID PO Last administered on 11/18/18 09:22; Admin Dose 100 MG; Start 11/06/18 at 09:00 Insulin Detemir (Levemir) 10 units QAM SC Last administered on 11/18/18 09:22; Admin Dose 10 UNITS; Start 11/06/18 at 09:00 Levothyroxine Sodium (Synthroid) 75 mcg BEFORE BREAKFAST PO Last administered on 11/17/18 06:11; Admin Dose 75 MCG; Start 11/06/18 at 07:00 Lorazepam (Ativan) 1 mg Q6 PRN PO ANXIETY Last administered on 11/13/18 01:49; Admin Dose 1 MG; Start 11/05/18 at 23:00 Magnesium Hydroxide (Milk Of Mag) 30 ml DAILY PRN PO CONSTIPATION; Start at 23:00 Senna (Senokot) 1 tab QHS PO Last administered on 11/17/18at 20:12; Admin Dose 1 TAB; Start 11/06/18 at 21:00 Venlafaxine HCl (Effexor Xr) 75 mg BID PO Last administered on 11/18/18at 09:21; Admin Dose 75 MG; Start 11/06/18 at 09:00 Miscellaneous Information 1 ea NOTE XX ; Start 11/06/18 at 17:00 Glucose (Glutose) 15 gm Q15M PRN PO DECREASED GLUCOSE; Start 11/06/18 at 17:00 Glucose (Glutose) 22.5 gm Q15M PRN PO DECREASED GLUCOSE; Start 11/06/18 at 17:00 Dextrose (D50w Syringe) 25 ml Q15M PRN IV DECREASED GLUCOSE; Start 11/06/18 at 17:00 Dextrose (D50w Syringe) 50 ml Q15M PRN IV DECREASED GLUCOSE; Start 11/06/18 at 17:00 Glucagon (Glucagen) 1 mg Q15M PRN IM DECREASED GLUCOSE; Start 11/06/18 at 17:00 Glucose (Glutose) 15 gm Q15M PRN BUCCAL DECREASED GLUCOSE; Start 11/06/18 at 17:00 YESSICA BUI MD Nov 18, 2018 15:58
--- NOTE | 2018-11-18 18:50 | NUR ---
End of Shift Summary: Patient is alert & orientated x 1-2, vital signs stable, no signs of acute distress, no c/o pain. Patient originally treated for hematuria, resolved. Patient has history of Left sided CVA. Patient has Accu checks AC/HS, insulin coverage per sliding scale. Patient turned & repositioned q2h, on low air-loss mattress, skin kept C/D/I. Patient instructed to call for assistance, rounded on hourly, will continue to monitor patient status. Patient cleared for discharge back to SNF, will endorse to oncoming shift RN, plan for D/C tomorrow.
[2018-11-18 19:50] VITALS: BP 126/68; PULSE 100; RESP 16
[2018-11-18] MEDS: ATORVASTATIN 40 MG TAB PO SCH (21:08)
[2018-11-18] MEDS: SENNA TAB PO SCH (21:08)
[2018-11-19 02:00] VITALS: BP 189/83; PULSE 94; RESP 17
[2018-11-19 04:19] VITALS: BP 132/64; PULSE 81
--- NOTE | 2018-11-19 06:13 | NUR ---
EOSS A&Ox2. BP high. PRN antihypertensive given. Med effective. All due meds given. Pt denies pain. Accuchecks done. No coverage required. Hourly rounding done. Repositioned Q2 hours. Bed left in lowest position with bed alarm on. Call light left within reach.
[2018-11-19] MEDS: LEVOTHYROXINE 75 MCG TAB PO SCH (06:22)
[2018-11-19 08:00] VITALS: BP 143/67; PULSE 87; RESP 18
[2018-11-19] MEDS: INSULIN ASPART [NOVOLOG] 3 ML PEN SC SCH ×2 (08:00→08:15)
[2018-11-19] MEDS: VENLAFAXINE (XR) 75 MG CAP PO SCH (08:59)
[2018-11-19] MEDS: DOCUSATE SODIUM 100 MG CAP PO SCH (08:59)
[2018-11-19] MEDS: BENZTROPINE 1 MG TAB PO SCH (08:59)
[2018-11-19] MEDS: AMLODIPINE 10 MG TAB PO SCH (09:00)
[2018-11-19] MEDS: INSULIN DETEMIR [LEVEMIR] (100 UNITS/ML) SYG SC SCH (09:02)
--- NOTE | 2018-11-19 12:06 | NUR ---
CM NOTE: SNF UPDATE S/W Crystal at [facility] who states they are accepting the pt. Iain Reyes RN CM [id number] Addendum: 11/19/18 at 1439 by JORGE REYES CM Transportation arranged for pt via [facility] (P:[phone]) at [phone] Trip#[id number]. JOHANNY Berry aware.
--- NOTE | 2018-11-19 13:15 | NUR ---
PT Note Therapy day number 4 Subjective Denies pain Pain Scale NUMERIC Pain Intensity 0 (0-10) Patient Stated Goal for Pain Relief 0 (0-10) Pain Level Comment No pain Pre Treatment Vital Signs Stable Yes Exercise Assessment Label Left Upper Extremity Exercise Type Passive ROM Additional Exercise Comments shoulder, elbow, finger flexion/extension Exercise Assessment Label Right Upper Extremity Exercise Type Active ROM Additional Exercise Comments 5x GH flexion, elbow flexion Exercise Assessment Label Left Lower Extremity Exercise Type Active Assist ROM Additional Exercise Comments 5x AAROM hip and knee flexion (hip flexor 1/5), Ankle DF/PF (toe ext 1/5) Exercise Assessment Label Right Lower Extremity Exercise Type Active Assist ROM Additional Exercise Comments 5x hip and knee flexion (ROM limited) Exercise Start Time 13:30 Exercise End Time 13:45 Total Exercise Time 15 min (8-127) Transfer Training Start Time 13:15 Supine to Sit Maximum Assist Bed Mobility Sit to Supine Dependent Sitting Tolerance 1 min Additional Mobility Comments maxAx1 rolling L, MaxAx2 supine-sit. c/o dizziness, UA EOB exercises Transfer Training End Time 13:30 Total Transfer Training Time 15 min (8-127) Patient uses wheelchair Not Applicable Static Sitting Balance Poor Dynamic Sitting Balance Poor Safety Judgement Poor Activity Tolerance Poor Equipment Present A pump Post Treatment Pain Intensity 0 0-10 Quality Indicators Dizziness Additional Post Treatment Comment No dizziness when returned to bed Total Treament Time 30 min (8-127) Total Minutes 30 Total Units 2 PT Technical Record Comment S: Pt found sleeping in bed, agreeable to PT. RN cleared pt for activity. O: Pt was seen for therex in bed: BUE and BLE ROM and strengthening. Reviewed bed mobility (rolling L), supine-sit. Noted poor tolerance for sitting (dizziness) and inability to attain upright posture. Pt returned to bed, with tray nearby, call light nearby and bed alarm on. RN was informed of pt response to activity and PT plan of care. A: Pt demonstrates some carryover of PT intervention, able to participate in rolling (max Ax1)and supine-sit (maxA x2). However demonstrates poor sitting tolerance today, requiring maxA x2 to maintaining static sitting. Pt requested return to bed with c/o dizziness. However pt did participate in therex and was receptive to PT education. Pt would benefit from continued inpatient PT to improve sitting tolerance and balance, improve independence with bed mobility and transfers, and increase strength/ROM of BUE and BLE. P: Continue POC.
[2018-11-19 14:00] VITALS: BP 141/65; PULSE 84; RESP 18
--- NOTE | 2018-11-19 16:08 | NUR ---
DISCHARGE Pt alert x1. All due meds given as ordered. NO acute distress noted. Accu-checks done as ordered. Turned and repositioned pt Q2hrs as tolerated. Pt worked with PT, able to get pt to edge of bed. Last BM 11/18. Discharge back to [facility]. Report given. IV and ID band removed at bedside. Transport arrived approx. 1545 pt transported 1615.
== END 2018-11-19 16:39 | DRG 872 ==
LOC: E/R 15:33 → 5EC 18:41 → CANRESERV 19:43
PROVIDERS: ADMIT Internal Medicine; ATTEND Internal Medicine
DX: A41.9 Sepsis, unspecified organism (principal); I69.354 Hemiplegia and hemiparesis following cerebral infarction affecting left non-dominant side; R31.9 Hematuria, unspecified; E11.9 Type 2 diabetes mellitus without complications; E03.9 Hypothyroidism, unspecified; Z85.3 Personal history of malignant neoplasm of breast; Z90.13 Acquired absence of bilateral breasts and nipples; Z85.72 Personal history of non-Hodgkin lymphomas; Z90.81 Acquired absence of spleen; I10 Essential (primary) hypertension; E87.6 Hypokalemia; K59.00 Constipation, unspecified; E87.5 Hyperkalemia
CPT/HCPCS: 36415; 71045; 76830; 76856; 80048; 80053; 80202; 81001; 82378; 82962; 83605; 83615; 83735; 84436; 84443; 84484; 84560; 85025; 85610; 85730; 86300; 87040; 87086; 93005; 97110; 97162; 97530; J0696; J1815; J2920; J3370; J3480; J7030; J7050